=== PATIENT | male | born 1945 | race Caucasian/White ===

== ENCOUNTER 2016-06-04 22:54 | Inpatient (IN) | payer MEDICARE, BC ==
[~2016-06-04] VITALS: Ht 177.8 cm; Wt 75.5 kg
--- NOTE | ~2016-06-04 | HEMODYNAMI ---
PATIENT:DAVID KO MEDICAL RECORD: [id number] : 45 [id number] ADMISSION DATE: 06/05/16 Generatedon:06/08/201615:50 Patient name: DAVID KO Patient #: [id number] SSN: : 1945 Date of study: 06/08/2016 Page: Of Hemodynamic Procedure Report Patient Data Patient Demographics Procedure consent was obtained First Name: DAVID Gender: Male Last Name: STEFANI : 1945 [facility] Initial: L Age: 70 year(s) Patient #: [id number] Race: Unknown Additional ID: [id number] Contact details Address: [address] [place] [address] [place] State: [place] City: [facility] Zip code: [address] Past Medical History Allergies: No known allergies Admission Admission Data Admission Date: 06/05/2016 Admission Time: 2:24 Admit Source: Other Room #: D.2121 Lab Results Lab Result Date: 06/08/2016 Lab Result Time: 5:14 Biochemistry Name Units Result Min Max BUN mg/dl 48 --(----)-* 7 18 Creatinine mg/dl 4.6 --(----)-* 0.6 1.3 CBC Name Units Result Min Max Hematocrit % 29 *-(----)-- 42 54 Hemoglobin g/dl 9.1 *-(----)-- 13.5 17.5 Procedure Procedure Types Cath Procedure PCI Procedure Coronary Stent Initial Miscellaneous Procedures Moderate Sedation up to 15 minutes Procedure Description Procedure Date Procedure Date: 06/08/2016 Procedure Start Time: 12:43 Procedure End Time: 12:59 Procedure Staff Name Function Adelso Patel MD Performing Physician Nata Brooks RN Nurse Jasbir Chávez RT Monitor Lisseth Ashraf RT Scrub Jacque Tidwell RT Monitor Procedure Data Cath Procedure Fluoroscopy Diagnostic fluoroscopy Total fluoroscopy Time: 5.5 time: 5.5 min min Diagnostic fluoroscopy Total fluoroscopy dose: dose: 326.8 mGy 326.8 mGy Contrast Material Contrast Material Type Amount (ml) Isovue 300 40 Entry Location Entry Primary Successful Side Size Upsize Upsize Entry Closure Succes sful Closure Location (Fr) 1 (Fr) 2 (Fr) Remarks Device Remarks Femoral Left 6 Fr Vascade artery Short Closure System Estimated blood loss: 10 ml Procedure Complications No complications Procedure Medications Medication Administration Route Dosage Oxygen NC 2 l/min Heparin Flush Bag added to field 2 bags (1000units/500ml NS) Lidocaine 2% added to field 20 Versed I.V. 1 mg Fentanyl I.V. 50 mcg Versed I.V. 1 mg Fentanyl I.V. 50 mcg Heparin Bolus I.V. 4000 units Hemodynamics Rest HGB: 9.1 (g/dl) Heart Rate: 64 (bpm) Snapshots Pre Cath Intra NCS Post Cath Vital Signs Time Heart Resp SPO2 NIBP (mmHg) Rhythm Pain Sedation Rate (ipm) (%) Status Level (bpm) 12:30:45 68 15 98 179/108(155) NSR 0 (11) 10(A) , No pain 12:35:13 64 13 100 181/98(143) NSR 0 (11) 10(A) , No pain 12:39:33 62 18 98 163/93(134) NSR 0 (11) 10(A) , No pain 12:43:54 65 16 96 157/90(137) NSR 0 (11) 9(A) , No pain 12:48:14 64 16 96 133/94(123) NSR 0 (11) 9(A) , No pain 12:52:26 63 16 96 144/92(137) NSR 0 (11) 9(A) , No pain 12:56:42 63 16 96 151/92(104) NSR 0 (11) 9(A) , No pain 12:57:59 64 16 97 149/86(107) NSR 0 (11) 9(A) , No pain Medications Time Medication Route Dose Verified Delivered Reason Notes Eff ectiveness by by 12:36:14 Oxygen NC 2 Adelso Nata Per l/min Amanda Brooks RN physician 12:36:22 Heparin Flush added 2 Adelso Darden used for Bag to bags Amanda Patel MD procedure (1000units/500ml field NS) 12:36:29 Lidocaine 2% added 20ml Adelso Adelso used for to vial Amanda Patel MD procedure field 12:40:49 Versed I.V. 1 mg Adelso Nata for Amanda Brooks RN sedation 12:40:55 Fentanyl I.V. 50 Adelso Nata for mcg Amanda Brooks RN sedation 12:42:19 Versed I.V. 1 mg Adelso Nata for Amanda Brooks RN sedation 12:42:22 Fentanyl I.V. 50 Adelso Nata for mcg Amanda Brooks RN sedation 12:42:23 Heparin Bolus I.V. 4000 Adelso Nata dose units Amanda Brooks RN verified wtih dr patel Procedure Log Time Note 12:10:20 Informed consent obtained and on chart 12:10:46 Nata Brooks RN sent for patient. Start room use. 12:11:25 Time tracking: Regular hours 12:11:29 Plan of Care:Hemodynamics will remain stable., Cardiac rhythm will remain stable., Comfort level will be maintained., Respiratory function will remain adequate., Patient/ family verbilizes understanding of procedure., Procedure tolerated without complication., Recovers from procedure without complications.. 12:11:33 Admit Source: Other 12:14:32 Lab Result : Hemoglobin 9.1 g/dl 12:14:32 Lab Result : Hematocrit 29 % 12:14:32 Lab Result : BUN 48 mg/dl 12:14:32 Lab Result : Creatinine 4.6 mg/dl 12:17:36 ACC Patient presents with Unstable Angina CCS Anginal Class 3--Marked limitation of physical activity, angina occurs with ordinary activity.. 12:17:40 Diagnostic Cath status Elective 12:17:50 H&P Date Dictated: 06/06/2016 Within 30 days and on chart.. 12:17:54 Lab results completed and on chart. 12:22:44 Patient received from Med II to CCL 2 Alert and oriented. Tansferred to table in Supine position. 12:22:49 Correct patient and procedure confirmed by team. 12:22:49 Warm blankets applied, and jana hugger turned on for patient comfort. 12:22:50 ECG and BP/O2 sat monitors applied to patient. 12:23:42 Pre-procedure instructions explained to patient. 12:23:43 Pre-op teaching completed and patient verbalized understanding. 12:23:54 Family unavailable. 12:23:58 Patient NPO since Midnight. 12:24:03 Patient allergic to No known allergies 12:24:06 Is the patient allergic to Iodine/contrast media? No. 12:29:30 Vital chart was started 12:36:14 Oxygen 2 l/min NC was given by Nata Brooks RN; Per physician; 12:36:22 Heparin Flush Bag (1000units/500ml NS) 2 bags added to field was given by Adelso Patel MD; used for procedure; 12:36:29 Lidocaine 2% 20ml vial added to field was given by Adelso Patel MD; used for procedure; 12:37:39 Is patient on blood thinner?Yes 12:37:41 ACC The patient was administered the following blood thiners within the last 24 hours: ACCPlavix 12:37:43 Patient diabetic? No. 12:37:45 Previous problem with sedation/anesthesia? No ? 12:37:46 Snore? No 12:37:47 Sleep apnea? No 12:37:48 Deviated septum? No 12:37:49 Opens mouth fully? Yes 12:37:50 Sticks out tongue? Yes 12:37:58 Airway obstruction? No ? 12:38:00 Dentures? No ? 12:39:51 Right groin area was prepped with chlora-prep and draped in sterile fashion 12:39:56 Sharps counted by scrub and verified by R.N. 12:39:56 Alarms reviewed by R. N. 12:39:57 --------ALL STOP TIME OUT------ 12:39:57 Physician arrived 12:39:58 Final Timeout: patient, procedure, and site verified with staff and physician. All members of the team are in agreement. 12:39:59 Right groin site verified by team. 12:40:02 Physical assessment completed. ASA score P 2 - A patient with mild systemic disease as per Adelso Patel MD. 12:40:06 Sedation plan: IV Moderate Sedation Versed, Fentanyl 12:40:12 Use device set Femoral PCI 12:40:14 Tegaderm 4 x 4 opened to sterile field. 12:40:15 Acist Manifold opened to sterile field. 12:40:16 Acist Syringe opened to sterile field. 12:40:17 Bag Decanter opened to sterile field. 12:40:17 Acist Hand Control opened to sterile field. 12:40:18 Terumo 6Fr Lysite Sheath opened to sterile field. 12:40:18 Cardinal Cath Pack opened to sterile field. 12:40:19 Merit BasixCompak Inflation Kit opened to sterile field. 12:40:19 St Luis Enrique 260cm J .035 wire opened to sterile field. 12:40:49 Versed 1 mg I.V. was given by Nata Brooks RN; for sedation; 12:40:55 Fentanyl 50 mcg I.V. was given by Nata Brooks RN; for sedation; 12:42:19 Versed 1 mg I.V. was given by Nata Brooks RN; for sedation; 12:42:22 Fentanyl 50 mcg I.V. was given by Nata Brooks RN; for sedation; 12:42:23 Heparin Bolus 4000 units I.V. was given by Nata Brooks RN; ; dose verified wt dr patel 12:42:55 Baseline sample Acquired. 12:42:59 Rhythm: sinus rhythm 12:43:02 Full Disclosure recording started 12:43:02 Procedure started. 12:43:06 Local anesthetic to left femerol artery with Lidocaine 2% by Adelso Patel MD.INITIAL ACCESS ONLY 12:43:15 A 6 Fr Short sheath was inserted into the Left Femoral artery 12:43:24 Cordis 6FR XBLAD 4.0 guide catheter opened to sterile field. 12:43:41 6 Fr xblad 4 guide catheter was inserted over the wire 12:43:49 ACC PCI Site: pLAD has 90% stenosis. 12:43:53 ACC PCI Site: mLAD has 90% stenosis. 12:43:56 ACC PCI Site: dLAD has 90% stenosis. 12:44:40 ACC Pre-intervention RAMU Flow is 1. 12:44:45 Zuniga Whisper J 300cm 0.014 guide wire opened to sterile field. 12:44:46 whisper wire advanced. 12:46:40 Wire advanced across lesion. 12:47:14 The Medtronic Resolute 3.0 X 38 stent was advanced then removed because of failure to cross lesion 12:48:26 Inflation number: 1 A [place] Sci Alger 3.0 X 20 balloon was prepped and advanced across the Mid LAD, then inflated to 11 NGOZI for 0:10 (min:sec). 12:48:38 Inflation number: 2 The [place] Sci Alger 3.0 X 20 balloon was reinflated across the Mid LAD, to 11 NGOZI for 0:10 (min:sec). 12:49:01 Inflation number: 3 The [place] Sci Alger 3.0 X 20 balloon was reinflated across the Mid LAD, to 11 NGOZI for 0:10 (min:sec). 12:49:15 Balloon removed over the wire. 12:51:10 Inflation Number: 4 A Medtronic Resolute 3.0 X 38 stent was prepped and advanced across the Mid LAD. The stent was deployed at 13 NGOZI for 0:10 (min:sec). 12:51:30 Stent catheter was removed intact over wire. 12:52:58 Inflation Number: 1 A Medtronic Resolute 3.0 X 15 stent was prepped and advanced across the Prox LAD. The stent was deployed at 15 NGOZI for 0:10 (min:sec). 12:53:00 Stent catheter was removed intact over wire. 12:53:01 Guide catheter removed. 12:53:01 Wire removed. 12:53:06 Vascade 6/7 Fr Closure Device opened to sterile field. 12:56:23 Sheath removed intact; hemostasis achieved with Vascade Closure System to the Left Femoral artery. 12:56:24 Procedure ended.(Physican Out) 12:57:02 Fluoroscopy time 05.50 minutes. 12:57:12 Fluoroscopy dose: 326.8 mGy 12:57:12 Flurop Dose total: 326.8 12:57:15 Contrast amount:Isovue 300 40ml. 12:57:16 Sharps counted by scrub and verified by R.N. 12:57:20 Insertion/operative site no bleeding no hematoma. 12:57:23 Post-op/insertion site Left Femoral artery dressed using a 4 x 4 and Tegaderm. 12:57:27 Post left femerol artery:stable, soft, clean and dry 12:57:41 Post Procedure Pulses reassessed and unchanged 12:57:44 Post-procedure physical assessment completed. ASA score P 2 - A patient with mild systemic disease as per Adelso Patel MD. 12:57:47 Post procedure rhythm: unchanged. 12:57:50 Estimated blood loss: 10 ml 12:57:51 Post procedure instruction explained to patient.Patient verbalizes understanding. 12:57:52 Patient needs reinforcement of post procedure teaching. 12:58:39 Procedure type changed to Cath procedure, PCI procedure, Coronary Stent Initial, Miscellaneous Procedures, Moderate Sedation up to 15 minutes 12:59:12 Procedure and supply charges have been captured, reviewed, submitted and are correct. 12:59:15 Procedure Complication : No complications 12:59:17 Vital chart was stopped 12:59:17 See physician's report for complete and final results. 12:59:19 Report given to PCU. 12:59:21 Patient transfered to PCU with Stretcher. 12:59:23 Procedure ended. 12:59:23 Full Disclosure recording stopped 12:59:32 ACC-PCI Only Patient was given prescriptions, or instructed by Adelso Patel MD to start/continue the following medications upon discharge: Plavix 13:00:38 End room use (Document Last) Intervention Summary Intervention Notes Time ActionType Lesion and Equipment Action# Pressure Duration Attributes Used 12:47:14 Discard Medtronic Stent Resolute 3.0 X 38 stent 12:48:26 Inflate Mid LAD [place] 1 11 00:10 balloon Sci Alger 3.0 X 20 balloon 12:48:38 Reinflate Mid LAD [place] 2 11 00:10 balloon Sci Alger 3.0 X 20 balloon 12:49:01 Reinflate Mid LAD [place] 3 11 00:10 balloon Sci Alger 3.0 X 20 balloon 12:51:10 Place stent Mid LAD Medtronic 4 13 00:10 Resolute 3.0 X 38 stent 12:52:58 Place stent Prox LAD Medtronic 1 15 00:10 Resolute 3.0 X 15 stent Device Usage Item Name Manufacture Quantity Catalog Number Hospital Part Current [facility] Lot# / Charge Number Stock Stock Serial# Code Tegaderm 4 1 [id number] [id number] 5 x 4 Acist Acist 1 [id number] 491905 405992 211768 5 Manifold Medical Systems Inc Acist Acist 1 40764 271942 662441 581614 20 Syringe Medical Systems Inc Acist Hand Acist 1 07458 757467 812266 877347 5 Control Medical Systems Inc Bag Microtek 1 2002S 381868 31774 884904 5 Decanter Medical Inc. Medline Cardinal 1 [id number] 667952 73210 444139 5 Cath Pack Health Terumo 6Fr Terumo 1 [id number] 795491 544189 311327 [address] [address] Luis Enrique 1 193182 428828 780839 630646 30 260cm J .035 wire Merit Merit 1 [id number] 220416 058203 625207 15 [facility] Medical Inflation Kit Cordis 6FR Cardinal 1 [id number] 254163 356636 925842 3 XBLAD 4.0 Health guide catheter Medtronic Medtronic 1 [id number] 615106 431569 0 [id number] Resolute 3.0 X 38 stent Canton Sci Canton 1 [id number] 395193 841275 034690 1 [id number] Quake [employer] Scientific 3.0 X 20 balloon Medtronic Medtronic 1 [id number] 424441 141222 2 [id number] Resolute 3.0 X 15 stent Vascade 67 Cardiva 1 [id number] 289179 061160 897402 5 Fr Closure Medical, Device Inc. Zuniga Zuniga 1 [id number] 336966 266743 881298 5 Whisper J Vascular 300cm 0.014 guide wire Signature Audit [place] Stage Time Signature Unsigned Intra-Procedure 06/08/2016 Jasbir Santillan Counts 1:01:08 PM RT(R) RT(R) 06/08/2016 3:49:32 PM Intra-Procedure 06/08/2016 Jacque 3:50:22 PM Counts RT(R) Signatures Monitor : Jasbir Chávez RT Signature : Date : Time : Monitor : Jacque Signature : Counts RT Date : Time : [place] [address] [place] [address]
--- NOTE | ~2016-06-04 | HEMODYNAMI ---
PATIENT:DAVID KO MEDICAL RECORD: [id number] : 45 [id number] ADMISSION DATE: 06/05/16 Generatedon:06/06/201610:51 Patient name: DAVID KO Patient #: [id number] SSN: : 1945 Date of study: 06/06/2016 Page: Of Hemodynamic Procedure Report Patient Data Patient Demographics Procedure consent was obtained First Name: DAVID Gender: Male Last Name: STEFANI : 1945 [facility] Initial: L Age: 70 year(s) Patient #: [id number] Race: Unknown Additional ID: [id number] Contact details Address: [address] [place] [address] circle State: [place] City: [facility] Zip code: [address] Admission Admission Data Admission Date: 06/05/2016 Admission Time: 2:24 Room #: D.2121 Lab Results Lab Result Date: 06/06/2016 Lab Result Time: 0:00 Biochemistry Name Units Result Min Max BUN mg/dl 44 --(----)-* 7 18 Creatinine mg/dl 4.4 --(----)-* 0.6 1.3 CBC Name Units Result Min Max Hemoglobin g/dl 9.7 *-(----)-- 13.5 17.5 Procedure Procedure Types Cath Procedure Diagnostic [facility] Procedure Coronary Stent Initial Miscellaneous Procedures Moderate Sedation up to 30 minutes Peripheral Cath Diagnostic Procedure Cath Peripheral Renal Arteriogram Procedure Description Procedure Date Procedure Date: 06/06/2016 Procedure Start Time: 10:32 Procedure End Time: 10:46 Procedure Staff Name Function Adelso Patel MD Performing Physician Jasbir Chávez RT Scrub Sonia Grayson RN Nurse Rickey Nieto RT Flat Polisher Casandra Perez RT Monitor Procedure Data Cath Procedure Fluoroscopy Diagnostic fluoroscopy Total fluoroscopy Time: 3.7 time: 3.7 min min Diagnostic fluoroscopy Total fluoroscopy dose: 394 dose: 394 mGy mGy Contrast Material Contrast Material Type Amount (ml) Isovue 370 61 Entry Location Entry Primary Successful Side Size Upsize Upsize Entry Closure Succes sful Closure Location (Fr) 1 (Fr) 2 (Fr) Remarks Device Remarks Femoral Right 5 Fr 6 Fr Vascade artery Short Closure System Estimated blood loss: 5 ml Diagnostic catheters Device Type Used For End Catheter Placement Cordis 5Fr Pigtail LV Angiography Catheter (MP) Cordis 5Fr JL 4.0 Left Coronary Catheter (MP) Angiography Cordis 5Fr 3DRC Catheter Right Coronary (MP) Angiography Procedure Complications No complications Procedure Medications Medication Administration Route Dosage Oxygen NC 2 l/min Lidocaine 2% added to field 20 Heparin Flush Bag added to field 2 bags (1000units/500ml NS) 0.9% NaCl I.V. 300 ml/hr Versed I.V. 1 mg Fentanyl I.V. 50 mcg Versed I.V. 1 mg Fentanyl I.V. 50 mcg Heparin Bolus I.V. 4000 units Integrilin (Bolus I.V. 6.8 ml 2mg/ml) Versed I.V. 0.5 mg Hemodynamics Rest HGB: 9.7 (g/dl) Heart Rate: 102 (bpm) Pressure Samples Time Site Value (mmHg) Purpose Heart Use Rate(bpm) 10:34 AO 188/99(135) Pullback 75 10:34 LV 181/10,23 Pullback 75 Gradients Valve Time Site 1 Site 2 Mean SEP/DFP Peak To Heart Use (mmHg) (sec/min) Peak Rate (mmHg) (bpm) Aortic 10:34 LV AO 0 9 0 75 181/10,23 188/99(135) Calculations Valve P-P Mean Valve Index Valve Source Name Gradient Area Flow (cm2) Aortic 0 0 0 0 Snapshots Pre Cath Intra NCS Post Cath Vital Signs Time Heart Resp SPO2 etCO2 [id number] NIBP (mmHg) Rhythm Pain Sedatio n Rate (ipm) (%) (mmHg) (mmHg) Status Level (bpm) 10:11:38 78 19 98 0 0 195/115(141) NSR 0 (11) 10(A) , No pain 10:16:06 74 16 97 0 0 185/105(138) NSR 0 (11) 10(A) , No pain 10:20:32 72 17 98 0 0 189/103(139) NSR 0 (11) 10(A) , No pain 10:25:00 75 15 98 0 0 189/113(164) NSR 0 (11) 10(A) , No pain 10:29:29 74 16 97 0 0 187/93(160) NSR 0 (11) 9(A) , No pain 10:33:55 73 17 96 0 0 183/117(149) NSR 0 (11) 9(A) , No pain 10:38:19 77 19 98 0 0 195/117(140) NSR 0 (11) 9(A) , No pain 10:44:05 78 17 97 0 0 190/115(140) NSR 0 (11) 10(A) , No pain Medications Time Medication Route Dose Verified Delivered Reason Notes Effectiveness by by 10:13:54 Oxygen NC 2 Adelso Buffie used for l/min Amanda Grayson RN procedure 10:13:59 Lidocaine 2% added 20ml Adelso Adelso for local to vial Amanda Patel MD anesthetic field 10:14:05 Heparin Flush added 2 Adelso Adelso used for Bag to bags Amanda Patel MD procedure (1000units/500ml field NS) 10:14:14 0.9% NaCl I.V. 300 Adelso Buffie Per physician ml/hr Amanda Grayson RN 10:28:21 Versed I.V. 1 mg Adelso Montanezie for sedation Amanda Grayson RN 10:28:27 Fentanyl I.V. 50 Adelso Buffie for sedation mcg Amanda Grayson RN 10:34:11 Versed I.V. 1 mg Adelso Buffie for sedation Amanda Grayson RN 10:34:15 Fentanyl I.V. 50 Adelso Buffie for sedation mcg Amanda Grayson RN 10:38:05 Versed I.V. 0.5 Adelso Buffie for sedation mg Amanda Grayson RN 10:39:10 Heparin Bolus I.V. 4000 Adelso Montanezie for verifi ed units Amanda Grayson RN anticoagulation with dr patel 10:42:10 Integrilin I.V. 6.8 Adelso Buffie for (Bolus 2mg/ml) ml Amanda Grayson RN antiplatelet therapy Procedure Log Time Note 9:51:26 Informed consent obtained and on chart 9:51:50 Rickey SLATER(R) sent for patient. Start room use. 9:51:52 Time tracking: Regular hours 9:51:55 Plan of Care:Hemodynamics will remain stable., Cardiac rhythm will remain stable., Comfort level will be maintained., Respiratory function will remain adequate., Patient/ family verbilizes understanding of procedure., Procedure tolerated without complication., Recovers from procedure without complications.. 10:00:23 Patient received from Outpatients to [facility] 1 Alert and oriented. Tansferred to table in Supine position. 10:00:24 Warm blankets applied, and jana hugger turned on for patient comfort. 10:00:24 Correct patient and procedure confirmed by team. 10:00:25 ECG and BP/O2 sat monitors applied to patient. 10::15 Baseline sample Acquired. 10::15 Vital chart was started 10::23 Rhythm: sinus rhythm 10::25 Full Disclosure recording started 10:10:17 H&P Date Dictated: 06/06/2016 New H&P dictated by physician.. 10:10:19 Pre-procedure instructions explained to patient. 10:10:19 Pre-op teaching completed and patient verbalized understanding. 10:10:20 Family in waiting room. 10:10:22 Patient NPO since Midnight. 10:10:27 Is the patient allergic to Iodine/contrast media? No. 10:10:28 Was the patient premedicated? No 10:10:31 Is patient on blood thinner?No 10:10:34 Patient diabetic? No. 10:10:37 Previous problem with sedation/anesthesia? No ? 10:10:39 Snore? No 10:10:40 Sleep apnea? No 10:10:41 Deviated septum? No 10:10:48 Opens mouth fully? Yes 10:10:48 Sticks out tongue? Yes 10:10:51 Airway obstruction? No ? 10:10:54 Dentures? No ? 10:13:54 Oxygen 2 l/min NC was given by Sonia Grayson RN; used for procedure; 10:13:59 Lidocaine 2% 20ml vial added to field was given by Adelso Patel MD; for local anesthetic; 10:14:05 Heparin Flush Bag (1000units/500ml NS) 2 bags added to field was given by Adelso Patel MD; used for procedure; 10:14:14 0.9% NaCl 300 ml/hr I.V. was given by Buffie Grayson RN; Per physician; 10:14:49 Pre procedure: right dorsailis pedis pulse 1+ Palpable, but thready & weak; easily obliterated 10:14:52 Patient pain scale 0/10 ?. 10:15:02 IV patent on arrival in left forearm with 0.9% NaCl at [facility]. 10:15:29 Lab Result : BUN 44 mg/dl 10:15: Lab Result : Creatinine 4.4 mg/dl 10:15: Lab Result : Hemoglobin 9.7 g/dl 10:15:32 Lab results completed and on chart. 10:15:37 Right groin area was prepped with chlora-prep and draped in sterile fashion 10::38 Alarms reviewed by R. N. 10:15:38 Sharps counted by scrub and verified by R.N. 10:20:43 Use device set Femoral Dx 10:20:44 Acist Syringe opened to sterile field. 10:20:45 Bag Decanter opened to sterile field. 10:20:46 Cardinal Cath Pack opened to sterile field. 10:20:47 Terumo 5Fr Latham Sheath opened to sterile field. 10:20:48 St Luis Enrique 260cm J .035 wire opened to sterile field. 10:20:51 Acist Hand Control opened to sterile field. 10:20:52 Acist Manifold opened to sterile field. 10:20:54 Tegaderm 4 x 4 opened to sterile field. 10:25:38 Physician arrived 10::38 --------ALL STOP TIME OUT------ 10:25:39 Final Timeout: patient, procedure, and site verified with staff and physician. All members of the team are in agreement. 10:25:40 Right groin site verified by team. 10:25:44 Physical assessment completed. ASA score P 3 - A patient with severe systemic disease as per Adelso Patel MD. 10:25:48 Sedation plan: IV Moderate Sedation Versed, Fentanyl 10:28:21 Versed 1 mg I.V. was given by Sonia Grayson RN; for sedation; 10:28:27 Fentanyl 50 mcg I.V. was given by Sonia Grayson RN; for sedation; 10:32:38 Cordis Infinity 5Fr Multipack catheter opened to sterile field. 10:32:44 Procedure started. 10:32:51 Local anesthetic to right femoral artery with Lidocaine 2% by Adelso Patel MD.INITIAL ACCESS ONLY 10:33:49 A 5 Fr sheath was inserted into the Right Femoral artery 10:33:54 A Cordis 5Fr Pigtail Catheter (MP) was advanced over the wire and used for LV Angiography. 10:34:11 Versed 1 mg I.V. was given by Sonia Grayson RN; for sedation; 10:34:15 Fentanyl 50 mcg I.V. was given by Sonia Grayson RN; for sedation; 10:34:53 Catheter removed. 10:35:03 A Cordis 5Fr JL 4.0 Catheter (MP) was advanced over the wire and used for Left Coronary Angiography. 10:35:30 LCA angiography performed. 10:35:33 Injector settings: Ml/sec: 3, Volume: 6, 10:36:12 Catheter removed. 10:36:19 A Cordis 5Fr 3DRC Catheter (MP) was advanced over the wire and used for Right Coronary Angiography. 10:37:03 RCA angiography performed. 10:37:06 Injector settings: Ml/sec: 3, Volume: 6, 10:37:25 Bilateral renal angiography performed. 10:38:05 Versed 0.5 mg I.V. was given by Sonia Grayson RN; for sedation; 10:38:34 Catheter removed. 10:38:54 Proceeding to intervention. 10:39:10 Heparin Bolus 4000 units I.V. was given by Sonia Grayson RN; for anticoagulation; verified with dr patel 10:39:15 Merit BasixCompak Inflation Kit opened to sterile field. 10:39:16 Zuniga Whisper J 300cm 0.014 guide wire opened to sterile field. 10:39:16 Terumo 6Fr Latham Sheath opened to sterile field. 10:40:21 Sheath upsized to a 6 Fr Short. 10:40:46 Cordis 6FR XBLAD 4.0 guide catheter opened to sterile field. 10:40:56 6 Fr xblad 4 guide catheter was inserted over the wire 10:41:03 whisper wire advanced. 10:41:27 Wire advanced across lesion. 10:42:10 Integrilin (Bolus 2mg/ml) 6.8 ml I.V. was given by Sonia Grayson RN; for antiplatelet therapy; 10:42:43 Inflation Number: 1 A Medtronic Integrity 3.5 X 15 stent was prepped and advanced across the Ramus. The stent was deployed at 13 NGOZI for 0:10 (min:sec). 10:45:02 Stent catheter was removed intact over wire. 10:45:03 Wire removed. 10:45:03 Guide catheter removed. 10:45:09 Vascade 6/7 Fr Closure Device opened to sterile field. 10:45:19 Sheath removed intact; hemostasis achieved with Vascade Closure System to the Right Femoral artery. 10:45:20 Procedure ended.(Physican Out) 10:45:37 Fluoroscopy time 03.70 minutes. 10:45:42 Fluoroscopy dose: 394 mGy 10:45:42 Flurop Dose total: 394 10:45:47 Contrast amount:Isovue 370 61ml. 10:45:48 Sharps counted by scrub and verified by R.N. 10:45:49 Insertion/operative site no bleeding no hematoma. 10:45:52 Post-op/insertion site Right Femoral artery dressed using a 4 x 4 and Tegaderm. 10:45:59 Post right femoral artery:stable 10:46:01 Post Procedure Pulses reassessed and unchanged 10:46:04 Post procedure rhythm: unchanged. 10:46:07 Estimated blood loss: 5 ml 10:46:09 Post procedure instruction explained to patient.Patient verbalizes understanding. 10:46:10 Patient needs reinforcement of post procedure teaching. 10:46:38 Procedure type changed to Cath procedure, Diagnostic procedure, LHC, LHC w/Coronaries, PCI procedure, Coronary Stent Initial, Miscellaneous Procedures, Moderate Sedation up to 30 minutes, Peripheral Cath Diagnostic Procedure, Cath Peripheral, Renal Arteriogram 10:46:39 Procedure and supply charges have been captured, reviewed, submitted and are correct. 10:46:43 Procedure Complication : No complications 10:46:46 Vital chart was stopped 10:46:46 See physician's report for complete and final results. 10:46:48 Report given to [facility]. 10:46:50 Patient transfered to [facility] with Stretcher. 10:46:52 Procedure ended. 10:46:52 Full Disclosure recording stopped 10:47:00 ACC-PCI Only Patient was given prescriptions, or instructed by Adelso Patel MD to start/continue the following medications upon discharge: Plavix 10:47:01 End room use (Document Last) Intervention Summary Intervention Notes Time ActionType Lesion and Equipment Action# Pressure Duration Attributes Used 10:42:43 Place stent Ramus Medtronic 1 13 00:10 Integrity 3.5 X 15 stent Device Usage Item Name Manufacture Quantity Catalog Hospital Part Current Minima l Lot# / Number Charge Number Stock Stock Serial# Code Acist Acist 1 79003 549478 943493 565597 20 Syringe Medical Systems Inc Bag Microtek 1 2002S 011970 54023 027638 5 Decanter Medical Inc. Cardinal Cardinal 1 [id number] 942295 30615 333206 5 Cath Pack Health Terumo 5Fr Terumo 1 [id number] 142169 627515 713338 [address] Luis Enrique 1 [id number] 843489 752044 072586 30 260cm J .035 wire Acist Hand Acist 1 18254 190199 475413 002781 5 Control Medical Systems Inc Acist Acist 1 41405 041982 889901 591971 5 Magnum Semiconductor Medical Systems Inc Tegaderm 4 3M 1 1626W 799319 914838 311958 5 x 4 Cordis Cardinal 1 [id number] 242146 38835 141621 30 Infinity Health 5Fr Multipack catheter Cordis 5Fr Cardinal 1 272923 5 Pigtail Health Catheter (MP) Cordis 5Fr Cardinal 1 901434 5 JL 4.0 Health Catheter (MP) Cordis 5Fr Cardinal 1 783438 5 3DRC Health Catheter (MP) Merit Merit 1 BF0751 619072 967784 973650 15 BasixCompak Medical Inflation Kit Zuniga Zuniga 1 [id number] 848583 977229 130229 5 Whisper J Vascular 300cm 0.014 guide wire Terumo 6Fr Terumo 1 [id number] 879350 601676 293216 40 Latham Sheath Cordis 6FR Cardinal 1 [id number] 090789 829157 103624 3 XBLAD 4.0 Health guide catheter Medtronic Medtronic 1 [id number] 902526 560006 357098 6 [id number] Integrity 3.5 X 15 stent Vascade 6/7 Cardiva 1 [id number] 970478 530778 244359 5 Fr Closure Medical, Device Inc. Signature Audit [place] Stage Time Signature Unsigned Intra-Procedure 06/06/2016 Casandra Perez 10:51:38 AM RT(R) Signatures Monitor : Casandra Perez RT Signature : Date : Time : [place] [id number] [place] [address]
[2016-06-05 00:07] LABS: BASOPHILS 0.4 % (0.0-2.0); HEMATOCRIT 32.7 % (42.0-54.0); HEMOGLOBIN 10.3 g/dL (13.5-17.5); IMMATURE GRANULOCYTES 0.1 % (0-5); LYMPHOCYTES 9.5 % (15-50); MCH 29.3 pg (26.0-34.0); MCHC 31.5 g/dL (31.0-37.0); MCV 93.2 fL (80.0-100.0); MEAN PLATELET VOLUME 13.6 fL (7.4-10.4); MONOCYTES 3.1 % (2-11); NEUTROPHILS 83.9 % (40-80); PLATELET COUNT 110 10x3/uL (130-400); RBC 3.51 10x6/uL (4.20-6.10); RDW 14.1 % (11.5-14.5); WBC 9.9 10x3/uL (4.8-10.8)
[2016-06-05 00:23] LABS: ALBUMIN 2.1 g/dL (3.4-5.0); ANION GAP 12.3 mmol/L (8-16); BILIRUBIN - TOTAL 0.4 mg/dL (0.2-1.3); CALCIUM 7.7 mg/dL (8.5-10.1); CARBON DIOXIDE 23.9 mmol/L (21.0-32.0); CREATININE - SERUM 4.3 mg/dL (0.6-1.3); POTASSIUM - SERUM 3.2 mmol/L (3.5-5.1); PROTEIN - SERUM 4.9 g/dL (6.4-8.2)
[2016-06-05 00:46] LABS: TROPONIN-I 0.301 ng/mL (0.000-0.060)
--- NOTE | 2016-06-05 03:00 | NUR ---
PT ARRIVED ON UNIT VIA WHEELCHAIR ACCOMPANIED BY HOSPITAL STAFF. AMBULATED SELF TO BED. SHUFFLING GAIT NOTED. PT ALERT AND ORIENTED X4. ANSWERS QUESTIONS APPROPRIATELY. ADMISSION ASSESSMENT COMPLETED AND HISTORY OBTAINED. PT REPORTS LEAVING A HOSPITAL ONE MONTH AGO FROM A LONG PERIOD OF TIME DUE TO A STROKE. LUNG SOUNDS AUSCULTATED AND UPPER LOBES CLEAR WITH FAINT CRACKLES IN LOWER LOBES. PT DENIES SOB AT THIS TIME. S1S2 AUSCULTATED AND REGULAR. BOWEL SOUNDS ACTIVE X4 QUADRANTS. +4 PITTING EDEMA IN LOWER EXTREMETIES. PULSES PALPABLE PERIPHERALLY. SKIN SMOOTH, WARM, AND DRY. BIRTHMARK NOTED ON SKIN ABOVE XYPHOID PROCESS. DENIES PAIN/NEEDS AT THIS TIME. BED LOW AND LOCKED, CALL LIGHT IN REACH. VSS AT THIS TIME, WILL CONTINUE TO MONITOR.
[2016-06-05 04:06] VITALS: BP 155/74; BMI 21.5
[2016-06-05 04:19] VITALS: BP 155/74
--- NOTE | 2016-06-05 05:27 | NUR ---
PT SLEEPING, NO S&S OF ACUTE DISTRESS NOTED. RR EVEN AND UNLABORED. VSS ATT, WILL CONTINUE TO MONITOR.
--- NOTE | 2016-06-05 07:25 | NUR ---
ASSESSMENT COMPLETED. TELEMERTY SHOWS SR 6. 02 AT 2 L/M PER NC. EDEMA TO LOWER EXTERMITES,LEFT AC SL. NO NEEDS VOICED. WILL [id number]
[2016-06-05 08:06] VITALS: BP 154/77
[2016-06-05] MEDS ORDERED: COREG 3.1253.125 MG PO (08:31)
[2016-06-05] MEDS ORDERED: DULCOLAX STOOL100 MG PO (08:32)
[2016-06-05] MEDS ORDERED: ASPIRIN81 MG PO (08:32)
--- NOTE | 2016-06-05 08:36 | NUR ---
RATIONALE FOR SCD'S EXPLAINED. REFUSED SCD'S.
[2016-06-05 10:25] VITALS: Ht 177.8 cm; Wt 75.5 kg
--- NOTE | 2016-06-05 10:52 | NUR ---
SLEEPING QUIETLY. MONITOR SHOWS 67 NS. WILL CONTINUE TO MONITOR
[2016-06-05 12:01] VITALS: BP 153/84
--- NOTE | 2016-06-05 12:32 | NUR ---
NS STARTED ORDERED WELL LASIX. DENIES ANY NEEDS. CALL LIGHT IN REACH
[2016-06-05 13:37] LABS: BASOPHILS 1.2 % (0.0-2.0); EOSINOPHILS 5.3 % (0-7); HEMATOCRIT 27.9 % (42.0-54.0); HEMOGLOBIN 8.8 g/dL (13.5-17.5); IMMATURE GRANULOCYTES 0.2 % (0-5); LYMPHOCYTES 16.9 % (15-50); MCH 29.3 pg (26.0-34.0); MCHC 31.5 g/dL (31.0-37.0); MEAN PLATELET VOLUME 13.5 fL (7.4-10.4); MONOCYTES 4.7 % (2-11); NEUTROPHILS 71.7 % (40-80); PLATELET COUNT 97 10x3/uL (130-400)
[2016-06-05 13:44] LABS: WBC 5.1 10x3/uL (4.8-10.8)
[2016-06-05 13:56] LABS: ANION GAP 11.3 mmol/L (8-16); CALCIUM 7.5 mg/dL (8.5-10.1); CARBON DIOXIDE 26.9 mmol/L (21.0-32.0); CREATININE - SERUM 4.5 mg/dL (0.6-1.3); POTASSIUM - SERUM 3.2 mmol/L (3.5-5.1)
[2016-06-05 14:05] LABS: % SATURATION 10 % (15-55); IRON 14 ug/dl (35-150); TOTAL IRON BIND CAPACITY 136 ug/dl (260-445); UNSAT IRON BIND CAPACITY 122 ug/dl (150-375)
[2016-06-05 16:14] VITALS: BP 180/100
--- NOTE | 2016-06-05 16:32 | NUR ---
Patient Name: DAVID KO Admission Status: ER Accout number: [id number] Admission Date: 06-05-2016 : 1945 Admission Diagnosis: Attending: CHRISTIANO Current LOS: 1 Anticipated DC Date: Planned Disposition: Home Primary Insurance: MEDICARE A & B Discharge Planning Comments: * Is the patient Alert and Oriented? Yes 0 * How many steps to enter\exit or inside your home? ELEVATOR 0 * PCP DR. CARL RUIZ 0 * [facility] * Preadmission Environment Home Alone 0 * ADLs Independent 0 * Equipment None 0 * Other Equipment NO MEDICAL EQUIPMENT PROVIDER PREFERENCE 0 * List name and contact numbers for known caregivers / representatives who currently or will assist patient after discharge: BONNY KO, BROTHER, PHONE NUMBER UNKNOWN - LIVES ON [facility] IN [place]. 0 * Community resources currently utilized None 0 * Please name any agencies selected above. NONE 0 * Additional services required to return to the preadmission environment? No 0 * Can the patient safely return to the preadmission environment? Yes 0 * Has this patient been hospitalized within the prior 30 days at any hospital? No 0 CM MET WITH PT IN ROOM TO DISCUSS DISCHARGE PLANNING AND NEEDS. PT REPORTS LIVING AT HOME INDEPENDENTLY AND ALONE AT THE [facility]. PT HAS NO MEDICAL EQUIPMENT AND NO OUTSIDE SERVICES ASSISTING IN THE HOME. CM DISCUSSED AVAILABILITY OF HOME HEALTH, REHAB SERVICES AND MEDICAL EQUIPMENT. PT DENIES DISCHARGE NEEDS, REPORTS HE WILL CALL A FRIEND TO PICK HIM UP FOR DISCHARGE HOME. PT REPORTS HAVING ONLY A BROTHER AN EMERGENCY CONTACT WHO LIVES SOMEWHERE IN [place] ON THE [facility], PHONE NUBMER UNKNOWN (CÉSAR KO). PT DENIES DISCHARGE NEEDS, PLAN TO RETURN HOME ALONE. CM TO FOLLOW AND ASSIST NEEDED. [employer] Cable Splicer: Lucius Baeza
--- NOTE | 2016-06-05 18:12 | NUR ---
UP IN ROOM. DENIES ANY NEEDS. WILL MONITOR. TELEMERTY SHOWS SR
--- NOTE | 2016-06-05 19:30 | NUR ---
LYING SUPINE IN BED, HOB UP SR UP X2, C/L IN REACH. RESP EVEN AND UNLAB, VOICES NO C/O PAIN OR DISCOMFORT AT THIS TIME. TELEMETRY IN PLACE SHOWING HR SR. NS INFUSING W/O DIFF VIA PUMP TO LAC IV WITH NO R/S NOTED AT SITE. CONTINUE TO MONITOR.
[2016-06-05 20:09] VITALS: BP 191/108
--- NOTE | 2016-06-05 22:44 | NUR ---
AWAKE, ALERT AMBULATING IN ROOM, DENIES NEEDS. TELEMETRY SHOWING HR SR. C/L IN REACH.
[2016-06-06 01:22] VITALS: BP 193/112
[2016-06-06 05:35] LABS: BASOPHILS 0.9 % (0.0-2.0); EOSINOPHILS 7.8 % (0-7); HEMATOCRIT 30.1 % (42.0-54.0); HEMOGLOBIN 9.7 g/dL (13.5-17.5); IMMATURE GRANULOCYTES 0.3 % (0-5); LYMPHOCYTES 11.9 % (15-50); MCH 29.8 pg (26.0-34.0); MCHC 32.2 g/dL (31.0-37.0); MCV 92.3 fL (80.0-100.0); MEAN PLATELET VOLUME 13.5 fL (7.4-10.4); MONOCYTES 4.9 % (2-11); NEUTROPHILS 74.2 % (40-80); RBC 3.26 10x6/uL (4.20-6.10); RDW 14.1 % (11.5-14.5); WBC 5.9 10x3/uL (4.8-10.8)
[2016-06-06 05:50] LABS: PLATELET COUNT 119 10x3/uL (130-400)
[2016-06-06 05:52] LABS: CALCIUM 7.7 mg/dL (8.5-10.1); CARBON DIOXIDE 22.3 mmol/L (21.0-32.0); CREATININE - SERUM 4.4 mg/dL (0.6-1.3); POTASSIUM - SERUM 3.3 mmol/L (3.5-5.1)
[2016-06-06 06:27] VITALS: BP 197/111
[2016-06-06 08:00] VITALS: BP 192/98
[2016-06-06 10:19] LABS: FOLATE (FOLIC ACID) - SERUM 15.3 ng/mL (>3.0)
--- NOTE | 2016-06-06 11:36 | NUR ---
PT IS ALERT. ASSESSMENT DONE PER FLOWSHEET. NO OTHER NEEDS AT THIS TIME. WILL CONTINUE TO MONTIOR.
--- NOTE | 2016-06-06 12:35 | NUR ---
DRESSING TO RIGHT GROIN CDI. NO OTHER NEEDS AT THIS TIME. WILL CONTINUE TO MONTIOR.
--- NOTE | 2016-06-06 13:59 | NUR ---
PT WILL NOT STAY IN BED NOR WILL HE LEAVE RIGHT LEG FLAT EVEN AFTER NUMEROUS ATTEMPTS TO TEACH PT ABOUT HIS CATH AND SITE AREA. AT THE MOMENT SITE IS CDI. PT APPEARS CONFUSED AFTER CATH MOST LIKELY DUE TO INFLUX OF NARCOTICS FROM THE PROCEEDURE. WILL CONTINUE TO MONITOR.
[2016-06-06 15:48] LABS: CHOL - HDL RATIO 4.4 ratio (2.3-4.9); LDL-HDL RATIO 3.1 ratio (1.5-3.5)
[2016-06-06 16:00] VITALS: BP 180/102
[2016-06-06 20:20] VITALS: BP 212/114
[2016-06-07 01:10] VITALS: BP 178/99
--- NOTE | 2016-06-07 03:55 | NUR ---
PT IV WITH CATH TIP FOUND UNDER DRESSING, LYING ON THE OUTSIDE OF THE SKIN. DRESSING REMOVED TO LEFT AC AND SITE CLEANSED. RESITED WITH 20 GA ANGIOCATH X 1 STICK TO LEFT FOREARM. PT RAMÓN WELL. DRESSING PER POLICY. WILL MONITOR.
--- NOTE | 2016-06-07 04:03 | NUR ---
PT B/P ELEVATED 194/112. HYDRALAZINE 10 MG IV GIVEN. WILL CONT TO MONITOR.
[2016-06-07 05:14] VITALS: BP 194/114
[2016-06-07 05:19] LABS: BASOPHILS 1.2 % (0.0-2.0); HEMOGLOBIN 9.2 g/dL (13.5-17.5); IMMATURE GRANULOCYTES 0.4 % (0-5); LYMPHOCYTES 16.8 % (15-50); MCH 29.8 pg (26.0-34.0); MCHC 31.7 g/dL (31.0-37.0); MCV 93.9 fL (80.0-100.0); MEAN PLATELET VOLUME 12.8 fL (7.4-10.4); MONOCYTES 6.4 % (2-11); NEUTROPHILS 59.2 % (40-80); PLATELET COUNT 130 10x3/uL (130-400); RBC 3.09 10x6/uL (4.20-6.10); RDW 14.3 % (11.5-14.5)
[2016-06-07 05:30] LABS: ANION GAP 14.3 mmol/L (8-16); CALCIUM 7.6 mg/dL (8.5-10.1); CARBON DIOXIDE 21.6 mmol/L (21.0-32.0); CREATININE - SERUM 4.3 mg/dL (0.6-1.3)
[2016-06-07 05:41] LABS: POTASSIUM - SERUM 3.9 mmol/L (3.5-5.1)
[2016-06-07 08:37] VITALS: BP 161/85
--- NOTE | 2016-06-07 09:21 | NUR ---
PT IS ALERT. ASSESSMENT DONE PER FLOWSHEET. NO OTHER NEEDS AT THIS TIME. WILL CONTINUE TO MONITOR.
[2016-06-07 12:29] VITALS: BP 144/78
--- NOTE | 2016-06-07 13:00 | NUR ---
Nutrition Follow Up: Chart reviewed. Pt is eating 75% meal avg on an AHA diet. Wt gain since admit. Meds noted. Labs noted including elevated BUN, Cr, Na. Rec continue current diet. RD will continue to monitor pt progress.
--- NOTE | 2016-06-07 13:59 | CN ---
PATIENT NAME:DAVID ROMAN MEDICAL RECORD: [id number] : [birth year] LOCATION:[facility] D.2121 ADMIT DATE: 06/05/16 ACCOUNT: [id number] CONSULTING PHYSICIAN: WILLIAN DIMAS MD REFERRING PHYSICIAN: AYLSSA OLIVER MD DATE OF CONSULTATION: 06/06/2016 DIAGNOSES: 1. Non-Q-wave myocardial infarction. 2. Shortness of breath, dyspnea on exertion. 3. Hypertension. HISTORY OF PRESENT ILLNESS: Mr. Roman has no previous cardiac history. He presents with 2 days of shortness of breath and some chest pressure. His troponin is positive for non-Q-wave myocardial infarction. His EKG is only with nonspecific ST-T abnormalities. PHYSICAL EXAMINATION: GENERAL APPEARANCE: Well-nourished, well-developed, appears stated age. Level of distress, comfortable. PSYCHIATRIC: Mental status, alert, normal affect. Orientation, oriented to time, place and person. EYES: Lids and conjunctiva, noninjected. No discharge, no pallor. ENT: Lips, teeth, gums, normal dentition. Oropharynx, no cyanosis, no pallor. NECK: Carotid arteries, bilateral normal upstroke, no bruits, no thrills. JUGULAR VEINS: No jugular venous pressure or distention. CERVICAL LYMPH NODES: Nontender, nonenlarged. THYROID: Not enlarged. Nontender. No nodules. LUNGS: Respiratory effort, unlabored. CHEST: Normal curvature. No thoracic deformity. No chest wall tenderness. Percussion, resonant. Auscultation, clear. No wheezes, no rales, no rhonchi. CARDIOVASCULAR: Precordial exam, nondisplaced. No heaves or pericardial thrills. Rate and rhythm, regular. Heart sounds, normal S1, normal S2. No S3, no gallop, no rub. Systolic murmur, not heard. Diastolic murmur, not heard. EXTREMITIES: No cyanosis, no edema. Peripheral pulses, full and equal in all extremities, except as noted. No bruits appreciated. ABDOMEN: Soft, nondistended. Normal aorta. No bruit. Nontender. No masses. Liver, nontender, no hepatomegaly. Spleen, nontender, no splenomegaly. MUSCULOSKELETAL: No joint tenderness. No joint swelling. No erythema. NEUROLOGICAL: Normal gait, normal strength, normal tone. SKIN: Warm and dry. REVIEW OF SYSTEMS: The patient reports easy bruising but reports no swollen glands. The patient reports no fever, no night sweats, no significant weight gain, no significant weight loss. No significant exercise tolerance. The patient reports no dry eyes, no irritation, no vision change. Patient reports no difficulty hearing and no ear pain. Patient reports no frequent nose bleeds or nose and sinus problems. Patient reports on arm pain on exertion. No shortness of breath while lying down. No history of heart murmur. Patient reports no cough, no wheezing or coughing up blood. Patient reports no abdominal pain, no vomiting. Normal appetite. No diarrhea and not vomiting blood. No nausea and no constipation. Patient reports no incontinence. No difficulty urinating. No hematuria. No increased frequency. Patient reports no muscle aches. No weakness, no arthralgias, no back pain. No swelling of the extremities. Patient reports no abnormal mole, no jaundice, no rashes. Reports CONSULT REPORT [id number] DAVID ROMAN no loss of consciousness. No weakness and no numbness. No seizures, dizziness, or headaches. The patient reports no depression, no sleep disturbance, feeling safe in a relationship and no alcohol abuse. Patient reports on fatigue. Reports no runny nose or sinus pressure. No itching, no hives, and no frequent sneezing. OVERALL IMPRESSION: Non-Q-wave myocardial infarction, most likely has hemodynamically significant coronary artery disease. We will proceed with coronary angiography. Further care depends upon findings of the angiography. TRANSINT:[id number] Voice Confirmation ID: [id number] DOCUMENT ID: [id number] WILLIAN DIMAS MD at 1359 CC: [id number] DICTATION DATE: 06/06/16 0841 GEOMAGNETICIAN: 06/06/16 0906 [place] [address]
--- NOTE | 2016-06-07 13:59 | OP ---
PATIENT NAME: DAVID KO MEDICAL RECORD: [id number] :45 LOCATION:D. D.2121 ADMISSION DATE:06/05/16 SURGEON: WILLIAN DIMAS MD DATE OF OPERATION: 06/06/2016 PROCEDURES: 1. PTCA stent to left circumflex. 2. Left heart catheterization. 3. Selective coronary angiography. 4. Left ventriculogram. 5. Bilateral selective renal angiography. INDICATIONS: Non-Q-wave myocardial infarction, coronary artery disease, renovascular hypertension with renal insufficiency. PROCEDURE IN DETAIL: After informed consent was obtained and after detailed explanation of risks, benefits as well as alternative therapies, the patient elected to proceed with angiogram and angioplasty. The right femoral area was prepped and draped in normal sterile fashion. The right femoral artery was cannulated via modified Seldinger technique with placement of 6-Icelandic sheath. All catheters exchanged through this sheath. FINDINGS: Left ventriculogram was not performed secondary to dye conservation and renal insufficiency. There was no gradient across the aortic valve with aortic pressure being 180/96, left ventricular pressure 180/12. SELECTIVE CORONARY ANGIOGRAPHY: 1. Left main is with no significant angiographic disease. 2. Left circumflex has a very large ramus intermedius that has 95% stenosis at the proximal vessel. 3. Left anterior descending has 2 areas of 90% stenosis. 4. Right coronary has 70%-80% stenosis in the mid vessel. 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 No significant renal artery stenosis. The left renal artery is a solitary artery off the aorta with no significant pressure damping, no renal artery stenosis. PTCA STENT OF THE RAMUS INTERMEDIUS: The stent used was a 3.5 x 15 mm Integrity. Result was 0% residual stenosis. OVERALL IMPRESSION: Successful percutaneous transluminal coronary angioplasty stent of the left circumflex ramus intermedius going from 95% initial stenosis to 0% residual. Plan for PTCA stent of the LAD and RCA in a staged fashion. bilateral selective renal angiography. 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 No significant renal artery stenosis. The left renal artery is a solitary artery off the aorta with no significant pressure damping, no renal artery stenosis. TRANSINT:[id number] Voice Confirmation ID: [id number] DOCUMENT ID: [id number] OPERATIVE REPORT [id number] DAVID KO 06/07/2016 Edited to correct fha underwriter errors and edit procedure #1 to left paris arias. WILLIAN DIMAS MD at 1359 CC: [id number] DICTATION DATE: 06/06/16 1048 MEDICAL STENOGRAPHER: 06/06/16 1113 ADM IN [place] [id number] [place] [id number]
--- NOTE | 2016-06-07 13:59 | EC ---
PATIENT:DAVID KO DATE OF SERVICE: 06/05/16 SEX: M MEDICAL RECORD: [id number] DATE OF : [birth year] LOCATION:D. D.212 AGE OF PATIENT: 70 ADMISSION DATE: 06/05/16 REFERRING PHYSICIAN: INTERPRETING PHYSICIAN: WILLIAN PATEL MD ECHOCARDIOGRAM REPORT ECHO CHARGES 4 ECHO COMPLETE CLINICAL DIAGNOSIS: CHF ECHOCARDIOGRAPHIC MEASUREMENTS (adult normal given) AC root (d.<3.7cm) 3.7 LV Septum d (<1.2 cm> 1.2 Valve Excursion 2.2 LV Septum (systole) 1.4 Left Atria (s.<4.0cm> 4.5 LVPW d(<1.2cm) 1.4 RV (d.<2.3cm) 3.4 LVPW (sytole) 1.6 LV diastole(<5.6CM) 6.6 MV E-F(>70mm/sec) LV systole 5.1 LVOT Diameter 2.1 MV exc.(>10mm) 1.6 Est.ejection fraction (50-75%) Pericardial Effusion N DOPPLER: LVIT A 51.0 E 94.0 LA RVSP 30 LVOT 102 AOP1/2T Asc. Ao 110 RVOT 71 RA PA 133 AV Gradient Peak 4.82 AV Mean 1.62 AV Area 2.2 MV Gradient Peak 4.02 MV Mean 1.63 MV Area COMMENTS: Polymer Tester: Liza DOWD Pipe Testing Technician:1 Dr. Patel TAPE# PACS DATE OF SERVICE: 06/05/2016 Echocardiogram FINDINGS: 1. Left ventricular chamber size is mildly dilated. Left ventricular systolic function is mildly reduced, overall ejection fraction 40%. 2. Left atrium is enlarged at 4.5 cm. Right atrium and right ventricle chamber sizes are as well mildly dilated. 3. Valvular structures have normal structure and motion. ECHOCARDIOGRAM REPORT [id number] DAVID KO 4. Doppler interrogation reveals mild mitral regurgitation, mild tricuspid regurgitation, no other valvular insufficiency or stenosis. Pulmonary systolic pressure is estimated at 30 mmHg. 5. No evidence of pericardial effusion or left ventricular thrombus. TRANSINT:[id number] Voice Confirmation ID: [id number] DOCUMENT ID: [id number] WILLIAN PATEL MD at 1353 CC: [id number] DICTATION DATE: 06/06/16930 COMPUTER SYSTEMS ANALYST: 06/06/1659 ADM IN [facility] [address] [facility], [facility]
--- NOTE | 2016-06-07 14:12 | NUR ---
PT IS ALERT. NO SS OF DISTRESS AT THIS TIME. WILL CONTINUE TO MONITOR.
[2016-06-07 16:42] VITALS: BP 155/84
[2016-06-07 20:39] VITALS: BP 142/86
[2016-06-08 00:47] VITALS: BP 153/86
[2016-06-08 04:56] VITALS: BP 142/76
[2016-06-08 05:14] LABS: BASOPHILS 1.6 % (0.0-2.0); EOSINOPHILS 18.3 % (0-7); HEMOGLOBIN 9.1 g/dL (13.5-17.5); IMMATURE GRANULOCYTES 0.2 % (0-5); LYMPHOCYTES 17.4 % (15-50); MCH 29.6 pg (26.0-34.0); MCHC 31.4 g/dL (31.0-37.0); MCV 94.5 fL (80.0-100.0); MEAN PLATELET VOLUME 12.5 fL (7.4-10.4); MONOCYTES 7.2 % (2-11); NEUTROPHILS 55.3 % (40-80); RBC 3.07 10x6/uL (4.20-6.10); RDW 14.2 % (11.5-14.5); WBC 4.3 10x3/uL (4.8-10.8)
[2016-06-08 05:20] LABS: PLATELET COUNT 171 10x3/uL (130-400)
[2016-06-08 05:29] LABS: ANION GAP 15.2 mmol/L (8-16); CALCIUM 7.6 mg/dL (8.5-10.1); CARBON DIOXIDE 20.9 mmol/L (21.0-32.0); CREATININE - SERUM 4.6 mg/dL (0.6-1.3); POTASSIUM - SERUM 4.1 mmol/L (3.5-5.1)
[2016-06-08 08:26] VITALS: BP 174/99
--- NOTE | 2016-06-08 09:26 | NUR ---
TELEMETRY SR. NPO FOR [facility]. CALL LIGHT IN REACH. WILL CONT. PLAN OF CARE.
[2016-06-08 12:10] VITALS: BP 157/84
--- NOTE | 2016-06-08 12:25 | NUR ---
PRE-OPS GIVEN. TO FLOUR MIXER BY BED.
--- NOTE | 2016-06-08 13:30 | NUR ---
BACK FROM CATERING ADMINISTRATIVE ASSISTANT. VS WNL. RIGHT GROIN STABLE WITHOUT BLEEDING OR HEMATOMA NOTED. WILL MONITOR.
--- NOTE | 2016-06-08 16:12 | NUR ---
Patient Name: DAVID KO Encounter No: [id number] : 1945 Primary Insurance: MEDICARE A & B Anticipated DC Date: 06-09-2016 Planned Disposition: Home DCP follow-up note: CM MET WITH PT IN ROOM TO DISCUSS DISCHARGE NEEDS AND PLANNING. CM DISCUSSED AVAILABILITY OF HOME HEALTH, REHAB SERVICES AND MEDICAL EQUIPMENT. PT DENIES DISCHARGE NEEDS, WILL PHONE A FRIEND TO TAKE HIM HOME TO THE [facility]. IMPORTANT MESSAGE FROM MEDICARE PROVIDED AND EXPLAINED. Lucius Baeza, CASE MANAGEMENT
[2016-06-08 16:25] VITALS: BP 155/82
--- NOTE | 2016-06-08 17:00 | NUR ---
BED REST UP. GROIN STABLE.
[2016-06-08 20:06] VITALS: BP 162/90
[2016-06-09 00:01] VITALS: BP 150/72
--- NOTE | 2016-06-09 02:01 | NUR ---
PT IS CONFUSED AND FULLY DRESSED, REMOVED HIS TELEMETRY. STATES HE IS READY TO GO HOME. EXPLAINED TO PT THAT HE IS NOT BEING DISCHARGED UNTIL THE MORNING. PT IS CONFUSED TO TIME. PT REFUSES TO WEAR A GOWN AND REFUSES TO PUT TELEMETRY BACK ON. ASSISTED PT BACK TO ROOM. PT TAKES CHAIR AND SITS IT OUTSIDE HIS DOOR, SITS IN THE CHAIR AND REFUSES TO GO BACK IN HIS ROOM. PT IS IN DIRECT VIEW OF THE NURSES STATION AND WILL CONT TO MONITOR HIM FREQ FOR SAFETY.
[2016-06-09 04:50] LABS: BASOPHILS 1.3 % (0.0-2.0); EOSINOPHILS 22.4 % (0-7); HEMATOCRIT 30.8 % (42.0-54.0); HEMOGLOBIN 9.7 g/dL (13.5-17.5); IMMATURE GRANULOCYTES 0.2 % (0-5); LYMPHOCYTES 16.6 % (15-50); MCH 29.8 pg (26.0-34.0); MCHC 31.5 g/dL (31.0-37.0); MCV 94.5 fL (80.0-100.0); MONOCYTES 6.2 % (2-11); NEUTROPHILS 53.3 % (40-80); RBC 3.26 10x6/uL (4.20-6.10); WBC 5.2 10x3/uL (4.8-10.8)
[2016-06-09 04:51] LABS: PLATELET COUNT 216 10x3/uL (130-400)
[2016-06-09 05:01] VITALS: BP 179/105
[2016-06-09 05:11] LABS: ANION GAP 12.7 mmol/L (8-16); CALCIUM 7.9 mg/dL (8.5-10.1); CARBON DIOXIDE 23.4 mmol/L (21.0-32.0); CREATININE - SERUM 4.8 mg/dL (0.6-1.3); POTASSIUM - SERUM 4.1 mmol/L (3.5-5.1)
[2016-06-09 07:20] VITALS: BP 165/94
--- NOTE | 2016-06-09 07:34 | NUR ---
0710-AROUSES EASILY WITH AM ROUNDING, DENIES NEEDS AT PRESENT TIME. ON ROOM AIR. LEFT FOREARM SEEN WITH SALINE LOCK. BILATERAL DRESSINGS OF 2 X2 AND OPSITE SEEN TO RIGHT AND LEFT GROIN. OP SITES PALPATE SOFT. BILATERAL PPP AND STRONG. WILL CONTINUE TO MONITOR.
--- NOTE | 2016-06-09 10:58 | NUR ---
NORMAL SALINE IV FLUID STARTED TO LEFT FOREARM ORDERED AND EXPLAINED TO PATIENT.
[2016-06-09 11:13] VITALS: BP 131/85
--- NOTE | 2016-06-09 13:23 | NUR ---
WATCHING TV, DENIES NEEDS AT PRESENT TIME. FEELS LIKE A SAUNA IN ROOM BUT PATIENT SAYS HE IS COMFORTABLE. WILL CONTINUE TO MONITOR.
[2016-06-09 15:12] VITALS: BP 132/69
--- NOTE | 2016-06-09 15:44 | NUR ---
PATIENT TO TAKE SHOWER AND COMPLETE LINEN CHANGE PER MYSELF DONE. WILL CONTINUE TO MONITOR.
--- NOTE | 2016-06-09 18:07 | NUR ---
PATIENT STATES HE HAS NOT HAD A BOWEL MOVEMENT IN 4 DAYS. UPSET THAT WE ARE GIVING HIM HIS FEMALE LAXATIVE AND VEGETABLE LAXATIVE THAT HE HAS TAKEN "FOREVER". I ASKED HIM IF HE WOULD LIKE SOME WARM PRUNE JUICE AND 7UP. HE REPLIED NO. HE TELLS ME THAT THE DOCTORS AND MYSELF ARE NOT DOING OUR JOB HE HAS NOT HAD A BM. WILL CONTINUE TO MONITOR.
--- NOTE | 2016-06-09 20:03 | NUR ---
PT RESTING IN BED. ALERT/ORIENTED TO SELF. SAYING HE JUST WANTS TO GO HOME. NONLABORED RESPIRATIONS ON ROOM AIR. PIV TO LFA WITH NS @ 75ML/HR. SEE ASSESSMENT. CPOC.
[2016-06-09 20:51] VITALS: BP 146/86
--- NOTE | 2016-06-09 21:58 | NUR ---
HS MEDS GIVEN. PT RESTING WITH NO DISTRESS. CONTINUE TO MONITOR.
--- NOTE | 2016-06-09 23:12 | NUR ---
RESTING WITH EYES CLOSED. NO DISTRESS. CPOC.
[2016-06-10 00:30] VITALS: BP 157/90
--- NOTE | 2016-06-10 01:16 | NUR ---
PT WAS AWAKENED BY ALARMING IV AND BECAME FOCUSED ON HIS BOWELS AND LACK OF BM "FOR 5 DAYS". VERY AGITATED TOWARDS NURSE. PROVIDED PT WITH MIRALAX AND APPLE JUICE AND HE ANGRILY TOLD NURSE THAT IT WAS A WASTE OF HIS TIME. PT SAYING HE HAS NEVER TOLD AN MD ABOUT HIS LACK OF BM BECAUSE "I NEVER SEE THEM, THEY DON'T COME AROUND". PROVIDED PT WITH MIRALAX MIXED IN APPLEJUICE FOR NOW AND TOLD HIM THAT WHEN MD ROUNDS IN AM, THIS WILL BE BROUGHT TO MD'S ATTENTION. PT VERY NEGATIVE AND TOLD NURSE SHE COULD LEAVE ROOM.
[2016-06-10 04:30] VITALS: BP 169/98
--- NOTE | 2016-06-10 04:48 | NUR ---
PT CAME INTO HALLWAY DRESSED IN HIS STREET CLOTHES, IV TO LEFT ARM HAD BEEN PULLED OUT BY PATIENT. PT HAD TAKEN A SHOWER. INSTRUCTED PT THAT HE NEEDED TO LET STAFF KNOW IF HE WAS WANTING TO SHOWER, SO THAT IV COULD HAVE BEEN SECURED. WHILE NURSE ASSESSING FOR SITE FOR NEW IV, PT RAMBLING ON AND ON ABOUT POOR NURSING CARE, NURSES THAT DON'T KNOW ANYTHING, AND THEN HE BEGAN TO TALK ABOUT HIS CONSTIPATION AGAIN. TELLING NURSE "YOU'D BE PISSED TOO IF THEY LET YOU GO 5 DAYS WITHOUT POOPING" AND "I OUGHT TO TAKE A SHIT IN THE FLOOR RIGHT NOW JUST TO SHOW ALL OF YOU". REMINDED PT THAT DAY NURSE HAD OFFERED HIM PRUNE JUICE AND LEMON ANIAK COCKTAIL AND IT WAS DOCUMENTED THAT HE HAD REFUSED. PT STATES "THAT'S A LIE". REMINDED PT THAT THIS NURSE HAD PROVIDED HIM WITH MIRALAX AND APPLEJUICE AND HE ALSO DENIED RECIEVING THIS. ATTEMPTS X 2 TO RESITE IV TO WHERE PT WANTED IT, WHICH WAS NOT THE IDEAL SITE. NO SUCCESS. LAB COLLECTED BLOOD FOR AM LAB WORK AT THIS TIME. INSTRUCTED PT THAT WE WILL WAIT UNTIL LABS RESULT AND SEE IF HE EVEN NEEDS ANOTHER IV. CPOC.
[2016-06-10 05:03] LABS: BASOPHILS 1.3 % (0.0-2.0); EOSINOPHILS 19.3 % (0-7); HEMATOCRIT 28.7 % (42.0-54.0); HEMOGLOBIN 9.1 g/dL (13.5-17.5); IMMATURE GRANULOCYTES 0.2 % (0-5); LYMPHOCYTES 21.1 % (15-50); MCH 29.5 pg (26.0-34.0); MCHC 31.7 g/dL (31.0-37.0); MCV 93.2 fL (80.0-100.0); MEAN PLATELET VOLUME 11.7 fL (7.4-10.4); MONOCYTES 9.4 % (2-11); NEUTROPHILS 48.7 % (40-80); PLATELET COUNT 192 10x3/uL (130-400); RBC 3.08 10x6/uL (4.20-6.10); RDW 14.1 % (11.5-14.5); WBC 4.5 10x3/uL (4.8-10.8)
[2016-06-10 05:22] LABS: CALCIUM 7.8 mg/dL (8.5-10.1); CARBON DIOXIDE 21.3 mmol/L (21.0-32.0); CREATININE - SERUM 4.6 mg/dL (0.6-1.3); POTASSIUM - SERUM 4.3 mmol/L (3.5-5.1)
--- NOTE | 2016-06-10 07:21 | NUR ---
AM ROUNDING DONE. PATIENT STILL IS GOING ON ABOUT NOT HAVING A BM AND TELLING ME THAT WE ARE NOT "DOING YOUR JOB CAUSE I HAVE NOT HAD A BM". PATIENT HAS HAD MIRALOX BUT REFUSES HIS COLACE. TOLD HIM THAT WE WOULD TRY AND GET AN ORDER FOR A FLEET ENEMA. CONFUSED, KNOWS THAT HE IS IN THE HOSPUTAL BUT THINKS HE HAS A DOCTOR APPOINTMENT. NO IV ACCESS, REFUSES TO LET ME TRY, "WOMEN ARE NO GOOD". WILL CONTINUE TO MONITOR.
[2016-06-10 08:28] VITALS: BP 162/95
--- NOTE | 2016-06-10 09:26 | NUR ---
0925KARINA IN STRAIGHT BACK CHAIR. CHRONULAC GIVEN ORDERED. INSTRUCTED PATIENT TO NOTIFY US TO SEE BOWEL MOVEMENT BEFORE FLUSHING. STATES TO UNDERSTANDING. WILL CONTINUE TO MONITOR
--- NOTE | 2016-06-10 12:00 | NUR ---
PATIENT REPORTS TO HAVING A BOWEL MOVEMENT, HE DID NOT SAVE IT LIKE HE WAS ASKED TO. REPORTS THAT IT WAS HARD TO START WITH AND THEN WAS A "GREENISH COLOR". YELLS OUT TO ME "TOUCHDOWN". I ENCORUGED HIM TO WAIT ON DR OLIVER TO COME AND DISCHARGE HIM BEFORE HE TRIED TO LEAVE, STATES HE WILL WAIT. EATING LUNCH.
[2016-06-10 12:42] VITALS: BP 142/86
[2016-06-10] MEDS ORDERED: CATAPRES0.2 MG PO (13:54)
[2016-06-10] MEDS ORDERED: FERREX 150 PLUS1 CAP PO (13:54)
[2016-06-10] MEDS ORDERED: MIRALAX17 GM PO (13:55)
[2016-06-10] MEDS ORDERED: NORVASC10 MG PO (13:55)
[2016-06-10] MEDS ORDERED: PLAVIX75 MG PO (13:55)
[2016-06-10] MEDS ORDERED: COREG6.25 MG PO (13:55)
--- NOTE | 2016-06-10 14:20 | NUR ---
WRITTEN SCRIPTS GIVEN TO PATIENT FOR COREG, AMLODIPINE, AND PRAVACHOL. TO RETURN TO [facility] ON SUNDAY, JUNE 12, 2016 AT 0800. NOTHING TO EAT OR DRINK PAST MIDNIGHT THE NIGHT BEFORE.
--- NOTE | 2016-06-10 14:50 | NUR ---
VERBAL AND WRITTEN DISCHARGE INSTUCTIONS GIVEN TO PATIENT. TO BE BACK HERE ON 06-12-16 AT 0800. AGAIN, I STRESSED TO HIM THE IMPORTANCE OF THIS AND NOTHING TO EAT OR DRINK AFTER MIDNIGHT SATURDAY NIGHT, NOTHING SATURDAY MORNING. HE STATES HE UNDERSTANDS THIS. AWAITING TAXI FOR DISCHARGE.
--- NOTE | 2016-06-10 15:00 | NUR ---
DISCHARGED HOME VIA TAXI.
--- NOTE | 2016-06-22 08:46 | OP ---
PATIENT NAME: DAVID KO MEDICAL RECORD: [id number] :45 LOCATION:D.M2 D.2121 ADMISSION DATE:06/05/16 SURGEON: WILLIAN DIMAS MD DATE OF OPERATION: 06/08/2016 PROCEDURES: 1. PTCA stent LAD. 2. Selective coronary angiography. PROCEDURE IN DETAIL: After informed consent was obtained and after a detailed explanation of risks, benefits as well as alternative therapies, the patient elected to proceed with angiogram and angioplasty. The left femoral area was prepped and draped in normal sterile fashion. Left femoral artery was cannulated via modified Seldinger technique with placement of a 6-Spanish sheath. All catheters exchanged through this sheath. FINDINGS: The left anterior descending has 3 areas of 90% stenosis. These were addressed with a 3.0 x 38 and a 3.0 x 15 both Resolute stents. Result was 0% residual stenosis. OVERALL IMPRESSION: Successful percutaneous transluminal coronary angioplasty stent of the left anterior descending going from multiple areas of 90% initial stenosis to 0% residual. TRANSINT:[id number] Voice Confirmation ID: [id number] DOCUMENT ID: [id number] WILLIAN DIMAS MD at 0846 CC: [id number] DICTATION DATE: 06/08/16 1307 ROOFING LAYER: 06/08/16 1616 DIS IN 06/10/[address] [address]
--- NOTE | 2016-06-22 08:46 | DS ---
PATIENT:DAVID ROMAN :45 MEDICAL RECORD: [id number] DISCHARGE SUMMARY ADMISSION DATE: 06/05/16 DISCHARGE DATE: 06/10/16 DIAGNOSES: 1. Non-Q-wave myocardial infarction. 2. Coronary artery disease. 3. Percutaneous transluminal coronary angioplasty stent of the left circumflex and left anterior descending this admission. 4. Renal insufficiency. 5. Hypertension. HOSPITAL COURSE: Mr. Roman presents with chest pain, ruled in for non-Q-wave myocardial infarction, found to have severe 3-vessel coronary artery disease, underwent successful PTCA stent of the LAD and left circumflex. He was discharged home with the addition of aspirin and Plavix to his medical regimen and he will be brought back in 1 week for PTCA stent of the RCA. TRANSINT:[id number] Voice Confirmation ID: [id number] DOCUMENT ID: [id number] WILLIAN DIMAS MD at 0846 CC: [id number] DICTATION DATE: 06/08/16 1304 FIRER BOILER: 06/09/16 0033 DIS IN 06/10/[address] [facility] [address] [place] [address]
== END 2016-06-10 15:00 | disposition home or self-care (01) | DRG 246 ==
LOC: D.ER 22:54 → D.M2 06-05 02:24
PROVIDERS: Emergency Medicine Emergency Medical Services; Internal Medicine Interventional Cardiology; ADMIT Emergency Medicine
PROC: B2111ZZ Fluoroscopy of Multiple Coronary Arteries using Low Osmolar Contrast (ICD-10-PCS; 2016-06-06)
PROC: B2151ZZ Fluoroscopy of Left Heart using Low Osmolar Contrast (ICD-10-PCS; 2016-06-06)
PROC: B4181ZZ Fluoroscopy of Bilateral Renal Arteries using Low Osmolar Contrast (ICD-10-PCS; 2016-06-06)
PROC: 02703DZ Dilation of Coronary Artery, One Artery with Intraluminal Device, Percutaneous Approach (ICD-10-PCS; principal; 2016-06-06 11:00)
PROC: 4A023N7 Measurement of Cardiac Sampling and Pressure, Left Heart, Percutaneous Approach (ICD-10-PCS; 2016-06-06 11:00)
PROC: 027035Z Dilation of Coronary Artery, One Artery with Two Drug-eluting Intraluminal Devices, Percutaneous Approach (ICD-10-PCS; 2016-06-08)
DX: I21.4 Non-ST elevation (NSTEMI) myocardial infarction (principal); I50.23 Acute on chronic systolic (congestive) heart failure; N17.9 Acute kidney failure, unspecified; I13.0 Hypertensive heart and chronic kidney disease with heart failure and stage 1 through stage 4 chronic kidney disease, or unspecified chronic kidney disease; N18.4 Chronic kidney disease, stage 4 (severe); I25.10 Atherosclerotic heart disease of native coronary artery without angina pectoris; D63.1 Anemia in chronic kidney disease; Z86.73 Personal history of transient ischemic attack (TIA), and cerebral infarction without residual deficits; Z72.0 Tobacco use

== ENCOUNTER 2016-06-12 07:30 | Outpatient (CLI) | payer MEDICARE, BC ==
[~2016-06-12] VITALS: Ht 177.8 cm; Wt 78.2 kg
--- NOTE | ~2016-06-12 | HEMODYNAMI ---
PATIENT:DAVID KO MEDICAL RECORD: [id number] : 45 [id number] ADMISSION DATE: 06/12/16 Generatedon:06/12/20169:18 Patient name: DAVID KO Patient #: [id number] SSN: : 1945 Date of study: 06/12/2016 Page: Of Hemodynamic Procedure Report Patient Data Patient Demographics Procedure consent was obtained First Name: DAVID Gender: Male Last Name: STEFANI : 1945 Middle Initial: L Age: 70 year(s) Patient #: [id number] Race: Unknown Additional ID: [id number] Contact details Address: [address] [place] [address] [place] State: [place] City: [facility] Zip code: [address] Past Medical History Allergies: No known allergies Admission Admission Data Admission Date: 06/12/2016 Admission Time: 7:30 Lab Results Lab Result Date: 06/12/2016 Lab Result Time: 0:00 Biochemistry Name Units Result Min Max BUN mg/dl 37 --(----)-* 7 18 Creatinine mg/dl 4.4 --(----)-* 0.6 1.3 CBC Name Units Result Min Max Hemoglobin g/dl 10.5 *-(----)-- 13.5 17.5 Procedure Procedure Types Cath Procedure Diagnostic Procedure [place] FFR/IVUS Intra-Coronary IVUS Initial PCI Procedure Coronary Stent Initial Miscellaneous Procedures Moderate Sedation up to 15 minutes Procedure Description Procedure Date Procedure Date: 06/12/2016 Procedure Start Time: 9:00 Procedure End Time: 9:08 Procedure Staff Name Function Adelso Patel MD Performing Physician Casandra Perez RT Scrub Sonia Grayson RN Nurse Naresh Ruiz RT Monitor Procedure Data Cath Procedure Fluoroscopy Diagnostic fluoroscopy Total fluoroscopy Time: 2 time: 2 min min Diagnostic fluoroscopy Total fluoroscopy dose: 165 dose: 165 mGy mGy Contrast Material Contrast Material Type Amount (ml) Isovue 300 37 Entry Location Entry Primary Successful Side Size Upsize Upsize Entry Closure Succes sful Closure Location (Fr) 1 (Fr) 2 (Fr) Remarks Device Remarks Femoral Right 6 Fr Exoseal artery Short Procedure Complications No complications Procedure Medications Medication Administration Route Dosage Oxygen NC 2 l/min Lidocaine 2% added to field 20 Heparin Flush Bag added to field 2 bags (1000units/500ml NS) 0.9% NaCl I.V. 100 ml/hr Heparin Bolus I.V. 4000 units Fentanyl I.V. 50 mcg Integrilin (Bolus I.V. 6.8 ml 2mg/ml) Lasix I.V. 40 mg Plavix P.O. 600 mg Fentanyl I.V. 50 mcg Hemodynamics Rest HGB: 10.5 (g/dl) Heart Rate: 75 (bpm) Snapshots Pre Cath Intra NCS Post Cath Vital Signs Time Heart Resp SPO2 etCO2 [id number] NIBP (mmHg) Rhythm Pain Sedation Rate (ipm) (%) (mmHg) (mmHg) Status Level (bpm) 8:48:08 75 16 96 0 0 180/100(155) NSR 0 (11) 10(A) , No pain 8:52:32 73 17 97 0 0 176/100(153) NSR 0 (11) 10(A) , No pain 8:56:56 71 17 99 0 0 173/98(150) NSR 0 (11) 10(A) , No pain 9:01:18 72 16 99 0 0 182/103(164) NSR 0 (11) 9(A) , No pain 9:05:44 72 15 98 0 0 170/107(162) NSR 0 (11) 10(A) , No pain 9:17:10 77 16 99 0 0 178/107(158) NSR 0 (11) 10(A) , No pain Medications Time Medication Route Dose Verified Delivered Reason Notes Effectiveness by by 8:52:40 Oxygen NC 2 Adelso Buffie used for l/min Amanda Grayson RN procedure 8:52:46 Lidocaine 2% added 20ml Adelso Buffie used for to vial Amanda Grayson structural metal fabricator apprentice field 8:52:52 Heparin Flush added 2 Adelso Buffie used for Bag to bags Amanda Grayson RN procedure (1000units/500ml field NS) 8:53:14 0.9% NaCl I.V. 100 Adelso Buffie Per physician ml/hr Amanda Grayson RN 8:59:46 Fentanyl I.V. 50 Adelso Scott for sedation mcg Amanda Grayson RN 9:01:39 Heparin Bolus I.V. 4000 Adelso Scott for verifie d units Amanda Grayson RN anticoagulation with dr patel 9:06:16 Integrilin I.V. 6.8 Adelsosudhakar Montanezie for (Bolus 2mg/ml) ml Amanda Grayson RN antiplatelet therapy 9:08:03 Fentanyl I.V. 50 Adelso Scott for sedation mcg Amanda Grayson RN 9:11:39 Lasix I.V. 40 mg Adelso Scott Per physician Amanda Grayson RN 9:13:40 Plavix P.O. 600 Adelso Scott for mg Amanda Grayson RN antiplatelet therapy Procedure Log Time Note 8:30:36 ACC Patient presents with Stable Angina CCS Anginal Class 2--Slight limitation of ordinary activity. 8:30:38 Diagnostic Cath status Elective 8:30:41 Naresh Ruiz RT(R) sent for patient. Start room use. 8:37:05 Time tracking: Regular hours 8:37:10 Plan of Care:Hemodynamics will remain stable., Cardiac rhythm will remain stable., Comfort level will be maintained., Respiratory function will remain adequate., Patient/ family verbilizes understanding of procedure., Procedure tolerated without complication., Recovers from procedure without complications.. 8:37:17 Patient received from Pre/Post Procedure Room to CCL 1 Alert and oriented. Tansferred to table in Supine position. 8:37:19 Warm blankets applied, and jana hugger turned on for patient comfort. 8:37:19 Correct patient and procedure confirmed by team. 8:37:20 Signed procedure consent form obtained from patient. 8:37:22 ECG and BP/O2 sat monitors applied to patient. 8:46:57 Vital chart was started 8:46:58 Baseline sample Acquired. 8:47:02 Rhythm: sinus rhythm 8:47:04 Full Disclosure recording started 8:47:09 H&P Date Dictated: 06/12/2016 Within 30 days and on chart.. 8:47:10 Pre-procedure instructions explained to patient. 8:47:11 Pre-op teaching completed and patient verbalized understanding. 8:47:25 Family unavailable. 8:47:27 Patient NPO since Midnight. 8:47:40 Patient allergic to No known allergies 8:47:43 Is the patient allergic to Iodine/contrast media? No. 8:50:09 Patient diabetic? No. 8:50:40 ----Pre-sedation anethsthesia assessment.---- 8:50:43 Previous problem with sedation/anesthesia? No ? 8:50:44 Snore? No 8:50:45 Sleep apnea? No 8:50:47 Deviated septum? No 8:50:49 Opens mouth fully? Yes 8:50:50 Sticks out tongue? Yes 8:50:52 Airway obstruction? No ? 8:50:54 Dentures? No ? 8:50:57 Pre procedure: right dorsailis pedis pulse 1+ Palpable, but thready & weak; easily obliterated 8:51:00 Patient pain scale 0/10 ?. 8:51:04 IV patent on arrival in left antecubital with 0.9% NaCl at 10ml/hr. 8:52:40 Oxygen 2 l/min NC was given by Sonia Grayson RN; used for procedure; 8:52:46 Lidocaine 2% 20ml vial added to field was given by Sonia Grayson RN; used for procedure; 8:52:52 Heparin Flush Bag (1000units/500ml NS) 2 bags added to field was given by Sonia Grayson RN; used for procedure; 8:53:14 0.9% NaCl 100 ml/hr I.V. was given by Sonia Grayson RN; Per physician; 8:57:24 Lab Result : BUN 37 mg/dl 8:57:24 Lab Result : Creatinine 4.4 mg/dl 8:57:24 Lab Result : Hemoglobin 10.5 g/dl 8:58:15 Lab results completed and on chart. 8:58:18 Right groin area was prepped with chlora-prep and draped in sterile fashion 8:58:19 Alarms reviewed by R. N. 8:58:20 Sharps counted by scrub and verified by R.N. 8:58:36 --------ALL STOP TIME OUT------ 8:58:36 Final Timeout: patient, procedure, and site verified with staff and physician. All members of the team are in agreement. 8:58:38 Right groin site verified by team. 8:58:41 Physical assessment completed. ASA score P 2 - A patient with mild systemic disease as per Adelso Patel MD. 8:58:45 Sedation plan: IV Moderate Sedation Versed, Fentanyl 8:59:45 Use device set Femoral PCI 8:59:46 Fentanyl 50 mcg I.V. was given by Sonia Grayson RN; for sedation; 8:59:48 Acist Syringe opened to sterile field. 8:59:49 Acist Hand Control opened to sterile field. 8:59:50 Bag Decanter opened to sterile field. 8:59:52 Medline Cath Pack opened to sterile field. 8:59:53 Terumo 6Fr [place] Sheath opened to sterile field. 8:59:53 St Luis Enrique 260cm J .035 wire opened to sterile field. 8:59:54 Merit BasixCompak Inflation Kit opened to sterile field. 8:59:55 Acist Manifold opened to sterile field. 9:00:08 Zuniga Whisper J 300cm 0.014 guide wire opened to sterile field. 9:00:09 Broadcast Grade Weather [employer] Branding Graphics Display System Launcher 6Fr AR 2.0 guide catheter opened to sterile field. 9:00:12 Procedure started. 9:00:16 Local anesthetic to right femoral artery with Lidocaine 2% by Adelso Patel MD.INITIAL ACCESS ONLY 9:00:30 A 6 Fr Short sheath was inserted into the Right Femoral artery 9:00:46 6 Fr AR 2 guide catheter was inserted over the wire 9:00:58 Zero performed for pressure channel P1 9:01:02 Zero performed for pressure channel P1 9:01:07 Zero performed for pressure channel P1 9:01:39 Heparin Bolus 4000 units I.V. was given by Sonia Grayson RN; for anticoagulation; verified with dr patel 9:02:02 WHISPER wire advanced. 9:02:54 FFR/IVUS 9:02:54 IVUS catheter advanced over wire. 9:02:57 IVUS pass to RCA lesion performed. 9:03:07 Procedure type changed to Cath procedure, Diagnostic procedure, LHC, FFR/IVUS, Intra-Coronary IVUS Initial, PCI procedure, Coronary Stent Initial, Miscellaneous Procedures, Moderate Sedation up to 15 minutes 9:05:09 IVUS catheter removed over wire. 9:05:18 ACC PCI Site: mRCA has 76% stenosis. 9:05:22 ACC Pre-intervention RAMU Flow is 2. 9:06:16 Integrilin (Bolus 2mg/ml) 6.8 ml I.V. was given by Sonia Grayson RN; for antiplatelet therapy; 9:07:03 Inflation Number: 1 A Medtronic Integrity 4.0 X 22 stent was prepped and advanced across the Mid RCA. The stent was deployed at 21 NGOZI for 0:17 (min:sec). 9:07:08 ACC Post-intervention RAMU Flow is 3. 9:07:08 Stent catheter was removed intact over wire. 9:07:09 Wire removed. 9:07:10 Guide catheter removed. 9:07:18 Sheath removed intact; hemostasis achieved with Exoseal to the Right Femoral artery. 9:07:23 Contrast amount:Isovue 300 37ml. 9:07:25 Procedure ended.(Physican Out) 9:07:43 Fluoroscopy time 02.00 minutes. 9:07:48 Flurop Dose total: 165 9:07:48 Fluoroscopy dose: 165 mGy 9:07:49 Sharps counted by scrub and verified by R.N. 9:07:50 Insertion/operative site no bleeding no hematoma. 9:07:53 Post-op/insertion site Right Femoral artery dressed using a 4 x 4 and Tegaderm. 9:07:56 Post right femoral artery:stable 9:07:58 Post Procedure Pulses reassessed and unchanged 9:08:00 Post procedure: right dorsailis pedis pulse 1+ Palpable, but thready & weak; easily obliterated. 9:08:03 Fentanyl 50 mcg I.V. was given by Sonia Grayson RN; for sedation; 9:08:03 Post procedure rhythm: sinus rhythm 9:08:04 Post procedure instruction explained to patient.Patient verbalizes understanding. 9:08:28 Cordis 6Fr Exoseal opened to sterile field. 9:08:42 Procedure and supply charges have been captured, reviewed, submitted and are correct. 9:08:48 Procedure Complication : No complications 9:08:50 Vital chart was stopped 9:08:51 See physician's report for complete and final results. 9:08:52 Report given to PCU. 9:08:55 Patient transfered to PCU with Bed. 9:08:57 Procedure ended. 9:08:57 Full Disclosure recording stopped 9:09:00 End room use (Document Last) 9:11:39 Lasix 40 mg I.V. was given by Sonia Grayson RN; Per physician; 9:13:40 Plavix 600 mg P.O. was given by Sonia Grayson RN; for antiplatelet therapy; 9:14:33 Pt reloaded on plavix due to inability to remember to take plavix at home. Intervention Summary Intervention Notes Time ActionType Lesion and Equipment Action# Pressure Duration Attributes Used 9:07:03 Place stent Mid RCA Medtronic 1 21 00:18 Integrity 4.0 X 22 stent Device Usage Item Name Manufacture Quantity Catalog Hospital Part Current Minimal L ot# / Number Charge Number Stock Stock Serial# Code Acist Acist 1 40118 187418 212203 028854 20 Syringe Medical Systems Inc Acist Hand Acist 1 85256 777531 194799 998093 5 Send Word Now Medical Systems Inc Bag Microtek 1 2002S 896321 34523 788056 5 Sleep Number Inc. Medline Cardinal 1 [id number] 594937 96179 835018 5 OpinewsTV Terumo 6Fr Terumo 1 [id number] 027468 069708 492074 [address] Luis Enrique 1 345244 738117 565060 790417 30 260cm J .035 wire Merit Merit 1 [id number] 283782 842807 469717 15 BasixCompak Medical Inflation Kit Acist Acist 1 02404 607871 907175 505248 5 Manifold Medical Systems Inc Zuniga Zuniga 1 [id number] 329022 942980 998071 5 Whisper J Vascular 300cm 0.014 guide wire Medtronic Medtronic 1 [id number] 474808 64098 939995 1 Launcher 6Fr AR 2.0 guide catheter Medtronic Medtronic 1 [id number] 932788 460186 244704 1 0 [id number] Integrity 4.0 X 22 stent Cordis 6Fr Cardinal 1 [id number] 108195 275892 523245 10 Alticast Signature Audit [place] Stage Time Signature Unsigned Intra-Procedure 06/12/2016 Naresh Ruiz 9:18:14 AM RT(R) Signatures Monitor : Naresh Ruiz RT Signature : Date : Time : [address] [place] [address]
[~2016-06-12 07:30] MED LIST: ASPIRIN81 MG PO; CATAPRES0.2 MG PO; COREG 3.1253.125 MG PO; COREG6.25 MG PO; DULCOLAX STOOL100 MG PO; FERREX 150 PLUS1 CAP PO; MIRALAX17 GM PO; NORVASC10 MG PO; PLAVIX75 MG PO
[2016-06-12 07:48] VITALS: BP 187/96; BMI 24.7
[2016-06-12 08:01] LABS: BASOPHILS 0.9 % (0.0-2.0); EOSINOPHILS 12.4 % (0-7); HEMATOCRIT 33.7 % (42.0-54.0); HEMOGLOBIN 10.5 g/dL (13.5-17.5); IMMATURE GRANULOCYTES 0.7 % (0-5); LYMPHOCYTES 15.6 % (15-50); MCH 29.2 pg (26.0-34.0); MCHC 31.2 g/dL (31.0-37.0); MCV 93.6 fL (80.0-100.0); MEAN PLATELET VOLUME 11.5 fL (7.4-10.4); MONOCYTES 8.2 % (2-11); NEUTROPHILS 62.2 % (40-80); RDW 13.9 % (11.5-14.5); WBC 6.7 10x3/uL (4.8-10.8)
[2016-06-12 08:23] LABS: ANION GAP 16.1 mmol/L (8-16); CALCIUM 8.5 mg/dL (8.5-10.1); CARBON DIOXIDE 21.2 mmol/L (21.0-32.0); CREATININE - SERUM 4.4 mg/dL (0.6-1.3); POTASSIUM - SERUM 4.3 mmol/L (3.5-5.1)
[2016-06-12 08:37] LABS: PLATELET COUNT 231 10x3/uL (130-400)
[2016-06-12 10:51] VITALS: BP 192/105; Ht 177.8 cm; Wt 78.2 kg
[2016-06-12 12:18] VITALS: BP 155/76
[2016-06-12 16:16] VITALS: BP 153/86
[2016-06-12 21:15] VITALS: BP 150/78
--- NOTE | 2016-06-13 01:33 | NUR ---
PT LAYING IN BED NO DISTRESS OBSERVED CALL LIGHT IN REACH. PT AMBULATORY WITH NO ASSISTANCE NEEDED. PT AMBULATED INTO HALLWAY DRESSED AND DEMANDED TO BE ABLE TO GO HOME PT STATED " I WANT THIS TAKEN OUT NOW AND I AM LEAVING" WENT AND SPOKE WITH PT ABOUT REASON HE WAS LEAVING AND PT STATED " I HAVE BEEN COLD AND I DONT WANT TO BE HERE ANYMORE I AM LEAVING AND NOTHING CAN STOP ME " INFORMED PT THAT WOULD BE AND AMA AND RISK INVOLED OF DRIVEING VEHICHAL WELL PT STATED " I AM NOT A DAMN 3 YEAR OLD AND I UNDERSTAD" DR DIMAS NOTIFED AND AMA FORM SIGNED IV DC'D CATH INTACT PT AMBULATED OUT OF ROOM AND TO THE ELEVATORS OFFERED ASSISTANCE TO PT PT STATED " I DONT NEED ANY DAMN HELP" AND WALKED OFF WITH NO ASSISTANCE NEEDED
--- NOTE | 2016-06-22 08:46 | OP ---
PATIENT NAME: DAVID KO MEDICAL RECORD: [id number] :45 LOCATION:D.CAT ADMISSION DATE: SURGEON: WILLIAN DIMAS MD DATE OF OPERATION: 06/12/2016 PROCEDURES: 1. PTCA stent RCA. 2. Selective coronary angiography. 3. Intravascular ultrasound RCA. PROCEDURE IN DETAIL: After informed consent was obtained and after a detailed explanation of risks, benefits as well as alternative therapies, the patient elected to proceed with angiogram and angioplasty. The right femoral area was prepped and draped in normal sterile fashion. The right femoral artery was cannulated via modified Seldinger technique with placement of 6-[place] Islander sheath. All catheters exchanged through this sheath. FINDINGS: The right coronary artery has greater than 75% stenosis confirmed by intravascular ultrasound in mid vessel. This was addressed with a 4.0 x 22 mm Integrity stent. Result was 0% residual stenosis. OVERALL IMPRESSION: Successful percutaneous transluminal coronary angioplasty stent of the right coronary artery greater than 75% initial stenosis confirmed by intravascular ultrasound to 0% residual stenosis. TRANSINT:[id number] Voice Confirmation ID: [id number] DOCUMENT ID: [id number] WILLIAN DIMAS MD at 0846 CC: [id number] DICTATION DATE: 06/12/16 0914 DIE TRIPPER: 06/12/16 1531 [facility] CLI 06/12/[address] [address]
--- NOTE | 2016-06-22 08:46 | HP ---
PATIENT: DAVID KO MEDICAL RECORD: [id number] ACCOUNT: [id number] LOCATION:RADHA : 45 ADMISSION DATE: 06/12/16 HISTORY AND PHYSICAL EXAMINATION ADMITTING DIAGNOSES: 1. Angina. 2. Coronary artery disease. 3. Recent percutaneous transluminal coronary angioplasty stent of the left circumflex and left anterior descending with concomitant disease of the right coronary artery. 4. Renal insufficiency. 5. Cardiomyopathy. 6. Hypertension. 7. Hyperlipidemia. HISTORY OF PRESENT ILLNESS: This is a gentleman who recently presented with a non-Q-wave myocardial infarction, found to have severe 3-vessel coronary artery disease, underwent successful PTCA stent of the LAD and left circumflex, now brought back for PTCA stent of the RCA since he has developed significant lower extremity edema. He does have cardiomyopathy, ejection fraction in the 40% range as well as renal insufficiency. PHYSICAL EXAMINATION: GENERAL APPEARANCE: Well nourished, well developed, appears stated age. Level of distress, comfortable. PSYCHIATRIC: Mental status, alert, normal affect. Orientation, oriented to time, place and person. EYES: Lids and conjunctiva, noninjected. No discharge, no pallor. ENT: Lips, teeth, gums, normal dentition. Oropharynx, no cyanosis, no pallor. NECK: Carotid arteries, bilateral normal upstroke, no bruits, no thrills. JUGULAR VEINS: No jugular venous pressure or distention. CERVICAL LYMPH NODES: Nontender, nonenlarged. THYROID: Not enlarged. Nontender. No nodules. LUNGS: Respiratory effort, unlabored. CHEST: Normal curvature. No thoracic deformity. No chest wall tenderness. Percussion, resonant. Auscultation, clear. No wheezes, no rales, no rhonchi. CARDIOVASCULAR: Precordial exam, nondisplaced. No heaves or pericardial thrills. Rate and rhythm, regular. Heart sounds, normal S1, normal S2. No S3, no gallop, no rub. Systolic murmur, not heard. Diastolic murmur, not heard. EXTREMITIES: No cyanosis, ____ edema. Peripheral pulses, full and equal in all extremities, except as noted. No bruits appreciated. ABDOMEN: Soft, nondistended. Normal aorta. No bruit. Nontender. No masses. Liver, nontender, no hepatomegaly. Spleen, nontender, no splenomegaly. MUSCULOSKELETAL: No joint tenderness. No joint swelling. No erythema. NEUROLOGICAL: Normal gait, normal strength, normal tone. SKIN: Warm and dry. REVIEW OF SYSTEMS: The patient reports easy bruising but reports no swollen glands. The patient reports no fever, no night sweats, no significant weight gain, no significant weight loss. No significant exercise tolerance. The patient reports no dry eyes, no irritation, no vision change. Patient reports no difficulty hearing and no ear pain. Patient reports no frequent nose bleeds or nose and sinus problems. Patient reports on arm pain on exertion. No shortness of breath while lying down. No history of heart murmur. Patient HISTORY AND PHYSICAL [id number] DAVID KO reports no cough, no wheezing or coughing up blood. Patient reports no abdominal pain, no vomiting. Normal appetite. No diarrhea and not vomiting blood. No nausea and no constipation. Patient reports no incontinence. No difficulty urinating. No hematuria. No increased frequency. Patient reports no muscle aches. No weakness, no arthralgias, no back pain. No swelling of the extremities. Patient reports no abnormal mole, no jaundice, no rashes. Reports no loss of consciousness. No weakness and no numbness. No seizures, dizziness, or headaches. The patient reports no depression, no sleep disturbance, feeling safe in a relationship and no alcohol abuse. Patient reports on fatigue. Reports no runny nose or sinus pressure. No itching, no hives, and no frequent sneezing. OVERALL IMPRESSION: We will proceed with PTCA stent of the right coronary artery. We will admit for diuresis and for the lower extremity edema as well. TRANSINT:[id number] Voice Confirmation ID: [id number] DOCUMENT ID: [id number] WILLIAN DIMAS MD at 0846 CC: [id number] DICTATION DATE: 06/12/16 0851 HYDROELECTRIC PLANT MAINTAINER: 06/12/16 1004 [facility] CLI 06/12/16 [place] [id number] [place] [id number]
== END 2016-06-12 21:35 | disposition left against medical advice (07) ==
LOC: D.CATH 07:30 → D.M2 09:29 → D.CATH 21:35
PROVIDERS: Internal Medicine Interventional Cardiology
DX: I25.119 Atherosclerotic heart disease of native coronary artery with unspecified angina pectoris (principal); Z95.5 Presence of coronary angioplasty implant and graft; N28.9 Disorder of kidney and ureter, unspecified; I10 Essential (primary) hypertension; I42.9 Cardiomyopathy, unspecified; E78.5 Hyperlipidemia, unspecified

== ENCOUNTER 2017-04-24 06:52 | Day surgery (SDC) | payer MEDICARE, BC ==
[~2017-04-24] VITALS: Ht 172.7 cm; Wt 60.7 kg
--- NOTE | ~2017-04-24 | OP ---
PATIENT NAME: DAVID KO MEDICAL RECORD: [id number] :45 LOCATION:[facility] ADMISSION DATE: SURGEON: DANIEL MONROY MD DATE OF OPERATION: 04/24/2017 PREOPERATIVE DIAGNOSIS: End-stage renal disease without chronic access for hemodialysis. POSTOPERATIVE DIAGNOSIS: End-stage renal disease without chronic access for hemodialysis. PROCEDURE: Creation of left brachiocephalic primary arteriovenous fistula for hemodialysis access. SURGEON: Daniel Monroy MD VOYAGE MANAGEMENT SYSTEM OPERATOR: None. BLOOD LOSS: Less than 100 cc. ANESTHESIA: General. COMPLICATIONS: None. The risks, possible complications, and alternatives to procedure were explained to the patient. He elects to proceed. The discussion specifically included, but was not limited to, bleeding requiring emergency reoperation, infection, steal syndrome, nerve injury. OPERATIVE COURSE: The patient was conveyed to the operating room electively on 04/24/2017. General anesthesia was induced by the anesthesia staff. The left upper extremity was abducted at 90 degrees to the patient's trunk. The left upper extremity was sterilely prepped and draped. A transverse incision was accomplished in the left cubital fossa. Sharp dissection was carried down to the level of cephalic vein, the median basilic vein, the basilic vein as well as the paired antebrachial veins. The antebrachial veins were ligated. I dissected down to the brachial artery, which was nicely sized and of good quality. Intravenous heparin was given. Vessel loops were placed around these vessels. A longitudinal arteriotomy and longitudinal venotomy on the median basilic vein were then accomplished. I then sutured the 2 vascular structures together with a running 7-0 Prolene suture. I then flushed out through the cephalic venous system as well as the basilic venous system. The patient was going to have a dual outflow. Amarilis was added to the wound for additional hemostasis. The subdermis was approximated with interrupted 3-0 Vicryls. The skin was approximated with a running intracuticular 4-0 Vicryl. A sterile dressing was applied. The patient was then extubated and conveyed to post-anesthesia care unit where he was in stable condition. TRANSINT:[id number] Voice Confirmation ID: [id number] DOCUMENT ID: [id number] OPERATIVE REPORT [id number] STEFANIDAVID ROBERT MD at 1131 CC: GRISEL BUSH MD, CARL RUIZ MD and JANNET PARADA [id number] DICTATION DATE: 05/16/17 1510 BI CONSULTANT: 05/16/[address] [facility] 04/25/17 [place] [id number] [place] [id number]
[2017-04-24] MEDS ORDERED: LEVOTHYROXINE50 MCG PO (08:09)
[2017-04-24] MEDS ORDERED: PRAVACHOL40 MG PO (08:09)
[2017-04-24] MEDS ORDERED: COZAAR50 MG PO (08:10)
[2017-04-24] MEDS ORDERED: FUROSEMIDE40 MG PO (08:11)
[2017-04-24] MEDS ORDERED: BUMEX2 MG PO (08:12)
[2017-04-24] MEDS ORDERED: PREDNISONE20 MG PO (08:12)
[2017-04-24 08:23] VITALS: BMI 19.8
[2017-04-24 08:38] LABS: BASOPHILS 0.2 % (0-2); EOSINOPHILS 1.5 % (0-7); HEMATOCRIT 37.6 % (42.0-54.0); HEMOGLOBIN 12.1 g/dL (13.5-17.5); IMMATURE GRANULOCYTES 0.4 % (0-5); LYMPHOCYTES 25.5 % (15-50); MCHC 32.2 g/dL (31.0-37.0); MCV 96.4 fL (80.0-100.0); MEAN PLATELET VOLUME 12.9 fL (7.4-10.4); MONOCYTES 7.6 % (2-11); NEUTROPHILS 64.8 % (40-80); RDW 14.8 % (11.5-14.5); WBC 4.7 10x3/uL (4.8-10.8)
[2017-04-24 08:40] LABS: PLATELET COUNT 122 10x3/uL (130-400)
[2017-04-24 08:46] LABS: APTT 29.4 SECONDS (22.8-39.4); INR 1.02 (0.85-1.17)
[2017-04-24 08:59] LABS: ANION GAP 14.2 mmol/L (8-16); CALCIUM 7.9 mg/dL (8.5-10.1); CARBON DIOXIDE 25.4 mmol/L (21.0-32.0); CREATININE - SERUM 5.3 mg/dL (0.6-1.3); POTASSIUM - SERUM 3.6 mmol/L (3.5-5.1)
[2017-04-24] MEDS ORDERED: COREG25 MG PO (09:23)
[2017-04-24] MEDS ORDERED: PLAVIX75 MG PO (09:24)
[2017-04-24] MEDS ORDERED: MULTI-DAY VITAM1 TAB PO (09:32)
[2017-04-25 02:50] VITALS: BP 213/90; Ht 172.7 cm; Wt 60.7 kg
[2017-04-25 03:54] VITALS: BP 163/81
[2017-04-25 08:30] VITALS: BP 151/67
[2017-04-25 16:06] VITALS: BP 160/71
== END 2017-04-25 17:26 ==
LOC: D.M2 06:52 → D.OPS 06:52 → D.PAN 09:00 → D.OPS 09:15 → D.PAN 12:00 → D.M2 20:28 → D.OPS 04-25 17:26
PROVIDERS: Anesthesiology
DX: I12.0 Hypertensive chronic kidney disease with stage 5 chronic kidney disease or end stage renal disease (principal); N18.6 End stage renal disease; Z99.2 Dependence on renal dialysis; E03.9 Hypothyroidism, unspecified; I25.10 Atherosclerotic heart disease of native coronary artery without angina pectoris; Z01.812 Encounter for preprocedural laboratory examination

== ENCOUNTER 2017-09-18 07:20 | Inpatient (IN) | payer MEDICARE ==
[~2017-09-18] VITALS: Ht 172.7 cm; Wt 71.5 kg
--- NOTE | ~2017-09-18 | OP ---
PATIENT NAME: DAVID KO MEDICAL RECORD: [id number] :45 LOCATION:D. D.2139 ADMISSION DATE:09/18/17 SURGEON: IZAIAH MONROY MD DATE OF OPERATION: 09/19/2017 PREOPERATIVE DIAGNOSES: End-stage renal disease with peripheral access for hemodialysis, desires removal of the tunneled catheter. POSTOPERATIVE DIAGNOSES: End-stage renal disease with peripheral access for hemodialysis, desires removal of the tunneled catheter. PROCEDURES: Removal of right-sided tunneled hemodialysis catheter. SURGEON: Izaiah Monroy MD ROOF CEMENT AND PAINT MAKER HELPER: None. BLOOD LOSS: Minimal. ANESTHESIA: Local with IV sedation. COMPLICATIONS: None. The risks, possible complication, alternatives to procedure were explained to the patient. He elects to proceed. OPERATIVE COURSE: The patient was conveyed to the operating room electively on 09/19/2017. General anesthesia was induced by the anesthesia staff. The right chest and neck were sterilely prepped and draped. A local anesthetic was used to infiltrate the skin and subcutaneous tissues around the catheter exit site. I bluntly dissected up through the subcutaneous tract. I removed the catheter and its cuff in their entireties. I then placed a 3-0 Vicryl Rapide suture around the catheter tract to prevent it from bleeding. A sterile dressing was then applied. The patient was then conveyed to post-anesthesia care unit where he was in stable condition. TRANSINT:[id number] Voice Confirmation ID: [id number] DOCUMENT ID: [id number] IZAIAH MONROY MD at 1227 CC: [id number] DICTATION DATE: 09/19/171702 SENIOR APPLICATION SECURITY CONSULTANT: 09/19/17 1744 DIS IN 09/20/17 [facility] [address] [place] [address]
--- NOTE | ~2017-09-18 | HP ---
PATIENT: DAVID KO MEDICAL RECORD: [id number] ACCOUNT: [id number] LOCATION:[facility] D.2139 : 45 ADMISSION DATE: 09/18/17 HISTORY AND PHYSICAL EXAMINATION REASON FOR ADMISSION: Subclavian thrombosis with right IJ tunneled catheter with positive blood cultures. HISTORY OF PRESENT ILLNESS: A 72-year-old gentleman new to dialysis with ESRD is dialyzing via a right IJ tunnel catheter. He has a positive blood culture and a thrombus in his left subclavian. He had been having some pain and was sent over for an ultrasound. REVIEW OF SYSTEMS: Related to above. No shortness of breath, nausea, vomiting, diarrhea. All other review of systems are negative. PAST MEDICAL HISTORY: 1. ESRD. 2. CHF with diastolic dysfunction managed with dialysis now. 3. Anemia of CKD. 4. Hyperphosphatemia. ALLERGIES: Will review. SOCIAL HISTORY: No tobacco, alcohol or drugs. He is and retired. FAMILY HISTORY: Noncontributory for renal insufficiency. PAST SURGICAL HISTORY: Right IJ tunneled catheter placement and complete surgical base. We are admitting him for his IJ thrombus. PHYSICAL EXAMINATION: VITAL SIGNS: Blood pressure 142/72, 72 heart rate, 18 respiratory rate. GENERAL: He is alert, oriented times 3. HEENT: Normocephalic and atraumatic. Cranial nerves II through XII are intact. Right IJ tunneled catheter with some swelling to his right upper extremity. LUNGS: Clear. CHEST: Regular rhythm without rub. Occasional ectopic beat. EXTREMITIES: Trace lower extremity edema. NEUROLOGIC: No focal neurological deficits. He is able to ambulate without difficulties. LABORATORY DATA: Being sent CMP, CBC. He had blood cultures at his home dialysis unit. We will check his vancomycin level and consult surgery. ASSESSMENT AND PLAN: 1. ESRD. Continue dialysis prescription. We will discuss with surgery using his dialysis catheter. The thrombus is in his right IJ. 2. Tunnel catheter infection. We will review his antibiotics. He may need vancomycin if level is less than 20. 3. Hypertension. 4. Diastolic dysfunction managed with fluid removal. 5. Anemia of CKD. 6. Hyperphosphatemia. 7. Secondary hyperparathyroidism. HISTORY AND PHYSICAL [id number] DAVID KO PLAN: 1. Please see orders. 2. Appreciate Dr. Mayo. TRANSINT:[id number] Voice Confirmation ID: [id number] DOCUMENT ID: [id number] ALLYN BUENO MD at 1159 CC: [id number] DICTATION DATE: 09/18/17 1310 MGMT SPECIALIST: 09/18/17 1320 DIS IN 09/20/17 [facility] [address] [place] [address]
[~2017-09-18 07:20] MED LIST changes: +BUMEX2 MG PO; +COREG25 MG PO; +COZAAR50 MG PO; +FUROSEMIDE40 MG PO; +LEVOTHYROXINE50 MCG PO; +MULTI-DAY VITAM1 TAB PO; +PRAVACHOL40 MG PO; +PREDNISONE20 MG PO
[2017-09-18 14:57] LABS: BASOPHILS 0.2 % (0-2); EOSINOPHILS 1.7 % (0-7); HEMATOCRIT 38.4 % (42.0-54.0); HEMOGLOBIN 12.1 g/dL (13.5-17.5); IMMATURE GRANULOCYTES 0.6 % (0-5); LYMPHOCYTES 14.2 % (15-50); MCH 31.3 pg (26.0-34.0); MCHC 31.5 g/dL (31.0-37.0); MCV 99.2 fL (80.0-100.0); MEAN PLATELET VOLUME 10.6 fL (7.4-10.4); MONOCYTES 9.3 % (2-11); RBC 3.87 10x6/uL (4.20-6.10); RDW 14.2 % (11.5-14.5); WBC 10.5 10x3/uL (4.8-10.8)
[2017-09-18 15:10] LABS: INR 1.01 (0.85-1.17); PROTIME 12.9 SECONDS (11.6-15.0)
[2017-09-18 15:11] LABS: ALBUMIN 3.1 g/dL (3.4-5.0); ANION GAP 20.6 mmol/L (8-16); BILIRUBIN - TOTAL 0.3 mg/dL (0.2-1.3); CALCIUM 7.4 mg/dL (8.5-10.1); CARBON DIOXIDE 22.2 mmol/L (21.0-32.0); CREATININE - SERUM 9.4 mg/dL (0.6-1.3); POTASSIUM - SERUM 4.8 mmol/L (3.5-5.1)
[2017-09-18 15:16] LABS: PLATELET COUNT 164 10x3/uL (130-400)
[2017-09-18 15:18] LABS: PHOSPHOROUS 9.7 mg/dL (2.5-4.9)
[2017-09-18 15:45] VITALS: BMI 21.3
[2017-09-18 20:00] VITALS: BP 136/60
[2017-09-19] VITALS: BP 119/58
[2017-09-19 06:01] LABS: BASOPHILS 0.5 % (0-2); EOSINOPHILS 2.7 % (0-7); HEMATOCRIT 36.1 % (42.0-54.0); HEMOGLOBIN 11.5 g/dL (13.5-17.5); IMMATURE GRANULOCYTES 0.5 % (0-5); LYMPHOCYTES 15.5 % (15-50); MCH 31.3 pg (26.0-34.0); MCHC 31.9 g/dL (31.0-37.0); MCV 98.1 fL (80.0-100.0); MEAN PLATELET VOLUME 11.2 fL (7.4-10.4); MONOCYTES 7.4 % (2-11); NEUTROPHILS 73.4 % (40-80); PLATELET COUNT 150 10x3/uL (130-400); RBC 3.68 10x6/uL (4.20-6.10); RDW 14.2 % (11.5-14.5); WBC 8.3 10x3/uL (4.8-10.8)
[2017-09-19 06:27] LABS: INR 1.07 (0.85-1.17); PROTIME 13.5 SECONDS (11.6-15.0)
[2017-09-19 06:28] LABS: ALBUMIN 2.6 g/dL (3.4-5.0); ANION GAP 24.1 mmol/L (8-16); BILIRUBIN - TOTAL 0.28 mg/dL (0.2-1.3); CALCIUM 7.4 mg/dL (8.5-10.1); CREATININE - SERUM 10.4 mg/dL (0.6-1.3); POTASSIUM - SERUM 5.1 mmol/L (3.5-5.1); PROTEIN - SERUM 5.3 g/dL (6.4-8.2)
[2017-09-19 06:30] LABS: PHOSPHOROUS 10.9 mg/dL (2.5-4.9)
[2017-09-19 08:35] VITALS: BP 116/58
[2017-09-19 13:34] VITALS: Ht 172.7 cm; Wt 71.5 kg
[2017-09-19 20:00] VITALS: BP 114/54
[2017-09-20 01:51] VITALS: BP 135/66
[2017-09-20 05:50] LABS: BASOPHILS 0.4 % (0-2); EOSINOPHILS 2.2 % (0-7); HEMATOCRIT 35.1 % (42.0-54.0); HEMOGLOBIN 11.2 g/dL (13.5-17.5); IMMATURE GRANULOCYTES 0.5 % (0-5); MCH 30.8 pg (26.0-34.0); MCHC 31.9 g/dL (31.0-37.0); MCV 96.4 fL (80.0-100.0); MEAN PLATELET VOLUME 10.8 fL (7.4-10.4); NEUTROPHILS 75.9 % (40-80); PLATELET COUNT 138 10x3/uL (130-400); RBC 3.64 10x6/uL (4.20-6.10); WBC 7.8 10x3/uL (4.8-10.8)
[2017-09-20 05:54] VITALS: BP 115/56
[2017-09-20 06:39] LABS: ANION GAP 20.4 mmol/L (8-16); CALCIUM 7.6 mg/dL (8.5-10.1); CARBON DIOXIDE 22.2 mmol/L (21.0-32.0); CREATININE - SERUM 8.7 mg/dL (0.6-1.3); POTASSIUM - SERUM 5.6 mmol/L (3.5-5.1)
[2017-09-20] MEDS ORDERED: ELIQUIS2.5 MG PO (08:11)
[2017-09-20 08:18] VITALS: BP 104/57
[2017-09-20 08:20] LABS: HEP B CORE AB TOTAL Negative (Negative)
== END 2017-09-20 09:09 | disposition home or self-care (01) | DRG 314 ==
LOC: D.US 07:20 → D.M2 13:12 → D.SDCHOLD 13:12 → D.M2 14:05
PROVIDERS: Internal Medicine Nephrology; Surgery
PROC: 5A1D70Z Performance of Urinary Filtration, Intermittent, Less than 6 Hours Per Day (ICD-10-PCS; 2017-09-18)
PROC: 05PY33Z Removal of Infusion Device from Upper Vein, Percutaneous Approach (ICD-10-PCS; principal; 2017-09-19 14:15)
DX: T82.7XXA Infection and inflammatory reaction due to other cardiac and vascular devices, implants and grafts, initial encounter (principal); N18.6 End stage renal disease; I13.2 Hypertensive heart and chronic kidney disease with heart failure and with stage 5 chronic kidney disease, or end stage renal disease; I50.30 Unspecified diastolic (congestive) heart failure; N25.81 Secondary hyperparathyroidism of renal origin; I82.C11 Acute embolism and thrombosis of right internal jugular vein; Y83.8 Other surgical procedures as the cause of abnormal reaction of the patient, or of later complication, without mention of misadventure at the time of the procedure; Z99.2 Dependence on renal dialysis; Z86.73 Personal history of transient ischemic attack (TIA), and cerebral infarction without residual deficits; D63.1 Anemia in chronic kidney disease; E83.39 Other disorders of phosphorus metabolism

== ENCOUNTER 2019-04-04 07:06 | Inpatient (IN) | payer MEDICARE ==
[~2019-04-04] VITALS: Ht 172.7 cm; Wt 67.6 kg
[~2019-04-04 07:06] MED LIST changes: +ELIQUIS2.5 MG PO
[2019-04-04 07:28] LABS: BASOPHILS 0.2 % (0-2); EOSINOPHILS 0.1 % (0-7); HEMATOCRIT 32.6 % (42.0-54.0); HEMOGLOBIN 10.4 g/dL (13.5-17.5); IMMATURE GRANULOCYTES 0.2 % (0-5); LYMPHOCYTES 3.5 % (15-50); MCH 30.6 pg (26.0-34.0); MCHC 31.9 g/dL (31.0-37.0); MCV 95.9 fL (80.0-100.0); MEAN PLATELET VOLUME 12.4 fL (7.4-10.4); MONOCYTES 4.6 % (2-11); NEUTROPHILS 91.4 % (40-80); PLATELET COUNT 94 10x3/uL (130-400); RDW 14.8 % (11.5-14.5); WBC 9.9 10x3/uL (4.8-10.8)
[2019-04-04 07:33] LABS: APTT 41.4 SECONDS (22.8-39.4); INR 1.52 (0.85-1.17); PROTIME 17.7 SECONDS (11.6-15.0)
[2019-04-04 07:43] LABS: ANION GAP 13.7 mmol/L (8-16); CALCIUM 9.2 mg/dL (8.5-10.1); CARBON DIOXIDE 29.1 mmol/L (21.0-32.0); POTASSIUM - SERUM 3.8 mmol/L (3.5-5.1)
[2019-04-04 07:49] LABS: ALBUMIN 2.9 g/dL (3.4-5.0); BILIRUBIN - TOTAL 1.08 mg/dL (0.2-1.3); PROTEIN - SERUM 6.3 g/dL (6.4-8.2)
[2019-04-04 07:52] LABS: PLATELET ESTIMATE DECREASED
--- NOTE | 2019-04-04 08:51 | NUR ---
PT HAVING LOOSE BMS, WITH BRIGHT RED BLOOD NOTED. BACK FROM CT, ANOTHER LOOSE BM .
[2019-04-04 08:52] VITALS: BP 140/72
[2019-04-04 09:47] VITALS: BP 133/66
--- NOTE | 2019-04-04 10:30 | NUR ---
TRANSFER FROM ER BY STRETCHER. OREINTED TO ROOM. CALL LIGHT IN REACH. WILL CONT. PLAN OF CARE.
[2019-04-04] MEDS ORDERED: PHOSLO667 MG PO (10:38)
[2019-04-04 10:43] VITALS: BP 133/66; BMI 23.4
[2019-04-04 13:16] VITALS: BP 113/60
--- NOTE | 2019-04-04 14:47 | MORECARE ---
CASE MANAGEMENT DISCHARGE SUMMARY PATIENT: DAVID KO UNIT: [id number] ADM DATE: 04/04/19 AGE: 73 : 45 SEX: M ROOM/BED: D.2102 AUTHOR: ALEXANDRIA,ALFRED PHYSICIAN: REFERRING PHYSICIAN: DANIEL DENT MD DATE OF SERVICE: 04/04/19 Discharge Plan Patient Name: DAVID KO Facility: [facility]:[place] : 1945 Planned Disposition: Home Anticipated Discharge Date: 04/06/19 Discharge Date: Expected LOS: 2 Initial Reviewer: [email or web address] Initial Review Date: 04/04/2019 Generated: 04/04/19 3:46 pm DCP- Discharge Planning Updated by [email or web address]: Alana Pichardo on 04/04/19 1:[address] DC PLAN: Return to the [facility] alone. [facility] @ [facility]. ANTICIPATED DC NEEDS: Denies dc needs. CM met with patient to complete initial dc planning assessment. CM educated patient on the CM role and verbal consent given by patient to complete assessment. CM verified patient's address, phone number, and emergency contact phone numbers. Patient lives at the [facility] alone and reports he is indpendent with his ADL's. At discharge patient plans to return home and feels this is a safe discharge. He transports himself to and from [facility] on MWF. CM discussed availability of home health, rehab services, and medical equipment. Patient denied known discharge needs at this time. Transportation provider at discharge will be a cab. CM will continue to follow and will assist as needed with dc plans/needs. Alana Pichardo RN, [facility] DCPIA - Discharge Planning Initial Assessment Updated by [email or web address]: Alana Pichardo on 04/04/19 2:42 pm * Is the patient Alert and Oriented? Yes * How many steps to enter\exit or inside your home? elevator * PCP Dr. Dent * Pharmacy [facility]/ * Preadmission Environment Home Alone * ADLs Independent * Equipment Rolling Walker * List name and contact numbers for known caregivers / representatives who currently or will assist patient after discharge: Bonnie Ko -daughter- [phone] * Verbal permission to speak to the caregivers and representatives has been obtained from the patient. Yes * Community resources currently utilized Other * Please name any agencies selected above. OP HD MWF @ [facility]. Drives himself to and from HD. * Additional services required to return to the preadmission environment? No * Can the patient safely return to the preadmission environment? Yes * Has this patient been hospitalized within the prior 30 days at any hospital? No Patient Name: DAVID KO Page [id number] at 1447 All edits/amendments must be made on the electronic document DICTATION DATE: 04/04/19 1446 MEDICAL ADMINISTRATIVE SPECIALIST: KING 04/04/19 1446 RPT#: [id number] DC DATE: STATUS: ADM IN [facility] [address] [place] [address] END OF REPORT
--- NOTE | 2019-04-04 19:10 | NUR ---
AWAKE AND ALERT AND DENIES NEEDS I SHOWED PT USE OF CALL LIGHT AND BED IS LOW AND LOCKED
[2019-04-04 19:54] VITALS: BP 144/73
[2019-04-04 20:00] VITALS: BP 144/71
[2019-04-05] VITALS: BP 129/69
--- NOTE | 2019-04-05 01:04 | NUR ---
I have reviewed this patient and I concur with the Shift Assessment completed by the Licensed Practical Nurse today this shift.
[2019-04-05 04:00] VITALS: BP 138/64
[2019-04-05 05:13] LABS: BASOPHILS 0.1 % (0-2); EOSINOPHILS 1.1 % (0-7); HEMATOCRIT 30.9 % (42.0-54.0); HEMOGLOBIN 9.8 g/dL (13.5-17.5); IMMATURE GRANULOCYTES 0.3 % (0-5); LYMPHOCYTES 4.8 % (15-50); MCH 30.5 pg (26.0-34.0); MCHC 31.7 g/dL (31.0-37.0); MCV 96.3 fL (80.0-100.0); MEAN PLATELET VOLUME 13.2 fL (7.4-10.4); MONOCYTES 3.8 % (2-11); NEUTROPHILS 89.9 % (40-80); PLATELET COUNT 110 10x3/uL (130-400); RBC 3.21 10x6/uL (4.20-6.10); RDW 14.4 % (11.5-14.5); WBC 7.9 10x3/uL (4.8-10.8)
[2019-04-05 05:19] LABS: ANION GAP 15.3 mmol/L (8-16); CALCIUM 8.5 mg/dL (8.5-10.1); CARBON DIOXIDE 26.6 mmol/L (21.0-32.0); POTASSIUM - SERUM 3.9 mmol/L (3.5-5.1)
--- NOTE | 2019-04-05 07:26 | NUR ---
RECIEVE REPORT. RESTING IN BED WITH EYES CLOSED. RESPIRATIONS EVEN NONLABORED. NO SIGNS OF DISTRESS. CONTINUE PLAN OF CARE AND SAFETY PRECAUTIONS.
[2019-04-05 08:55] VITALS: BP 139/70
[2019-04-05 11:51] VITALS: BP 138/75
[2019-04-05 16:40] VITALS: BP 134/68
--- NOTE | 2019-04-05 16:58 | NUR ---
ALERT AND ORIENTED X4. SITTING UP IN BED. REFUSES TO TAKE HOSPITAL MEDICATIONS. HOME MEDICATIONS IN ROOM. OK TO TAKE HOME MEDICATIONS PER RICHAR GREENFIELD. DENIES ANY NEEDS AT THIS TIME. CONTINUE PLAN OF CARE AND SAFETY PRECAUTIONS.
--- NOTE | 2019-04-05 19:05 | NUR ---
PT AROUSES EASILY AND ASKS FOR SOME HYGIENE SUPPLIES THESE WERE PROVIDED I ASKED PT ABOUT TAKIONG HIS OWN MEDS AND HE SAID IM NOT TAKING YOURS I ASKED SO WHAT ABOUT YOUR MEDS TONIGHT AND HE SAID I HAVE ALREADY TAKEN ALL THAT I TAKE. LCTA BOWEL SOUNDS X4 AND PT REPORTS DIARREAH IS GONE. BED LOW AND LOCKED AND CALL LIGHT IS WITH PT
[2019-04-05 20:00] VITALS: BP 138/71; BP 196/82
--- NOTE | 2019-04-05 23:43 | NUR ---
FOUND PATIENT WITH IV OUT DURING RT CHECK PT REFUSES TO HAVE IT REPLACED HE STATES IM LEAVING IN THE MORNING YOU DO NOT HAVE AUTHORITY OVER ME NO BLEEDINF FROM SITE AND CATH IS INTACT
[2019-04-06 00:28] VITALS: BP 148/75
--- NOTE | 2019-04-06 03:28 | NUR ---
I have reviewed this patient and I concur with the Shift Assessment completed by the Licensed Practical Nurse today this shift.
[2019-04-06 03:57] LABS: BASOPHILS 0.3 % (0-2); EOSINOPHILS 3.4 % (0-7); HEMATOCRIT 31.2 % (42.0-54.0); IMMATURE GRANULOCYTES 0.3 % (0-5); LYMPHOCYTES 5.4 % (15-50); MCH 30.6 pg (26.0-34.0); MCHC 32.1 g/dL (31.0-37.0); MCV 95.4 fL (80.0-100.0); MEAN PLATELET VOLUME 10.9 fL (7.4-10.4); MONOCYTES 4.9 % (2-11); NEUTROPHILS 85.7 % (40-80); RBC 3.27 10x6/uL (4.20-6.10); RDW 14.5 % (11.5-14.5)
[2019-04-06 04:22] LABS: ANION GAP 14.1 mmol/L (8-16); CALCIUM 8.4 mg/dL (8.5-10.1); CARBON DIOXIDE 26.6 mmol/L (21.0-32.0); CREATININE - SERUM 7.1 mg/dL (0.6-1.3); POTASSIUM - SERUM 3.7 mmol/L (3.5-5.1)
[2019-04-06 04:23] LABS: PLATELET COUNT 139 10x3/uL (130-400)
[2019-04-06 04:30] VITALS: BP 130/67
--- NOTE | 2019-04-06 07:15 | NUR ---
RECIEVE REPORT. SITTING UP IN BED WATCHING TV. NO IV ACCESS. PATIENT STATES, "YOU AREN'T PUTTING THAT BACK IN MY ARM. I TOOK IT OUT BECAUSE IT'S BULLSHIT." NOTIFIED. DENIES ANY NEEDS AT THIS TIME. CONTINUE PLAN OF CARE AND SAFETY PRECAUTIONS.
[2019-04-06 10:27] VITALS: BP 147/71
[2019-04-06 14:48] VITALS: Ht 172.7 cm; Wt 67.6 kg
[2019-04-06 17:00] VITALS: BP 154/70
--- NOTE | 2019-04-06 19:17 | NUR ---
PT STATES TO ME HE IS GOING HOME TOMORROW AND THERE IS NO NEED FOR MY CARE SO I CAN GO HOME...BED IS LOW AND LOCKED SRX2 AQND PT HAS CALL LIGHT
[2019-04-06 20:00] VITALS: BP 156/72
[2019-04-07] VITALS: BP 154/44
--- NOTE | 2019-04-07 02:08 | NUR ---
I have reviewed this patient and I concur with the Shift Assessment completed by the Licensed Practical Nurse today this shift.
[2019-04-07 04:00] VITALS: BP 140/72
[2019-04-07 06:19] LABS: BASOPHILS 0.4 % (0-2); EOSINOPHILS 4.6 % (0-7); HEMATOCRIT 31.6 % (42.0-54.0); HEMOGLOBIN 9.9 g/dL (13.5-17.5); LYMPHOCYTES 11.4 % (15-50); MCH 30.4 pg (26.0-34.0); MCHC 31.3 g/dL (31.0-37.0); MCV 96.9 fL (80.0-100.0); MEAN PLATELET VOLUME 11.8 fL (7.4-10.4); MONOCYTES 7.6 % (2-11); PLATELET COUNT 146 10x3/uL (130-400); RBC 3.26 10x6/uL (4.20-6.10); RDW 14.5 % (11.5-14.5); WBC 5.4 10x3/uL (4.8-10.8)
[2019-04-07 06:35] LABS: ANION GAP 12.8 mmol/L (8-16); CALCIUM 8.1 mg/dL (8.5-10.1); CARBON DIOXIDE 28.8 mmol/L (21.0-32.0); CREATININE - SERUM 6.1 mg/dL (0.6-1.3); POTASSIUM - SERUM 3.6 mmol/L (3.5-5.1)
--- NOTE | 2019-04-07 07:20 | NUR ---
RECIEVE REPORT. ALERT AND ORIENTED X4. SITTING UP ON SIDE OF BED. PATIENT STATES, "I'M READY TO GO HOME." EXPLAIN NO ORDER IN COMPUTER FOR DISCHARGE. DENIES ANY NEEDS. CONTINUE PLAN OF CARE AND SAFETY PRECAUTIONS.
[2019-04-07 10:57] VITALS: BP 155/70
[2019-04-07 12:00] VITALS: BP 139/66
[2019-04-07 18:32] VITALS: BP 141/78
--- NOTE | 2019-04-07 19:15 | NUR ---
AWAKE IN ROOM BED LOW AND LOCKED PT DENIES NEEDS AT THIS TIME CALL LIGHT IS WITH PT SAFTY CHECK DONE
[2019-04-07 20:00] VITALS: BP 148/69
[2019-04-08 00:27] VITALS: BP 145/59
--- NOTE | 2019-04-08 04:18 | NUR ---
I have reviewed this patient and I concur with the Shift Assessment completed by the Licensed Practical Nurse today this shift.
[2019-04-08 04:30] VITALS: BP 161/71
[2019-04-08 05:56] LABS: ANION GAP 13.1 mmol/L (8-16); CALCIUM 9.5 mg/dL (8.5-10.1); CARBON DIOXIDE 29.3 mmol/L (21.0-32.0); CREATININE - SERUM 7.2 mg/dL (0.6-1.3); PHOSPHOROUS 5.2 mg/dL (2.5-4.9); POTASSIUM - SERUM 3.4 mmol/L (3.5-5.1)
[2019-04-08 06:47] LABS: BASOPHILS 0.3 % (0-2); EOSINOPHILS 4.5 % (0-7); HEMATOCRIT 35.9 % (42.0-54.0); HEMOGLOBIN 11.1 g/dL (13.5-17.5); IMMATURE GRANULOCYTES 0.1 % (0-5); MCH 29.8 pg (26.0-34.0); MCHC 30.9 g/dL (31.0-37.0); MCV 96.5 fL (80.0-100.0); MEAN PLATELET VOLUME 13.3 fL (7.4-10.4); MONOCYTES 5.2 % (2-11); NEUTROPHILS 77.9 % (40-80); PLATELET COUNT 152 10x3/uL (130-400); RBC 3.72 10x6/uL (4.20-6.10); RDW 14.4 % (11.5-14.5); WBC 6.7 10x3/uL (4.8-10.8)
--- NOTE | 2019-04-08 07:25 | NUR ---
PT LYING IN BED. WATCHING TV. PT STATES HE THINKS HE IS GOING HOME TODAY AFTER HD. I VERBALIZED UNDERSTANDING. PT ALSO STATES HE WILL TAKE HIS MEDS FROM HOME EXCEPT THE ANTBIOTICS. I VRBALIZED UNDERSTANDING. PT HAS NOT FURTHER NEEDS AT THIS TIME. BED LOW. CL IN REACH.
[2019-04-08 08:32] VITALS: BP 171/82
--- NOTE | 2019-04-08 09:56 | MORECARE ---
CASE MANAGEMENT DISCHARGE SUMMARY PATIENT: DAVID KO UNIT: [id number] ADM DATE: 04/04/19 AGE: 73 : 45 SEX: M ROOM/BED: D.0505 AUTHOR: ALFRED IBRAHIM PHYSICIAN: REFERRING PHYSICIAN: DANIEL DENT MD DATE OF SERVICE: 04/08/19 Discharge Plan Patient Name: DAVID KO Facility: [facility]:[place] : 1945 Planned Disposition: Home Anticipated Discharge Date: 04/08/19 Discharge Date: Expected LOS: 4 Initial Reviewer: [id number] Initial Review Date: 04/04/2019 Generated: 04/08/19 10:56 am Comments DCP- Discharge Planning Updated by [email or web address]: Lucius Baeza on 04/08/19 8:[address] Patient Name: DAVID KO Encounter No: [id number] : 1945 Primary Insurance: [facility] [employer] Anticipated DC Date: 04-08-2019 Planned Disposition: Home DCP follow-up note: CM MET WITH PT IN ROOM TO DISCUSS DISCHARGE NEEDS AND PLANNING. CM DISCUSSED AVAILABILITY OF HOME HEALTH, REHAB SERVICES AND MEDICAL EQUIPMENT. PT DENIES DISCHARGE NEEDS. PT WILL TAKE [facility] BACK TO [facility] FOR TRANSPORT HOME AT DISCHARGE TODAY. IMPORTANT MESSAGE FROM MEDICARE PROVIDED AND EXPLAINED. Lucius Baeza CASE MANAGEMENT DCP- Discharge Planning Updated by [email or web address]: Alana Pichardo on 04/04/19 1:[address] DC PLAN: [facility] MWF @ [facility]. ANTICIPATED DC NEEDS: Denies dc needs. CM met with patient to complete initial dc planning assessment. CM educated patient on the CM role and verbal consent given by patient to complete assessment. CM verified patient's address, phone number, and emergency contact phone numbers. [facility] and reports he is indpendent with his ADL's. At discharge patient plans to return home and feels this is a safe discharge. He transports himself to and from @[facility] on MWF. CM discussed availability of home health, rehab services, and medical equipment. Patient denied known discharge needs at this time. Transportation provider at discharge will be a cab. CM will continue to follow and will assist as needed with dc plans/needs. Alana Pichardo RN, [facility] [place] DCPIA - Discharge Planning Initial Assessment Updated by [id number]: Alana Pichardo on 04/04/19 2:42 pm * Is the patient Alert and Oriented? Yes * How many steps to enter\exit or inside your home? elevator * PCP Dr. Dent * Pharmacy [facility] * Preadmission Environment Home Alone * ADLs Independent * Equipment Rolling Walker * List name and contact numbers for known caregivers / representatives who currently or will assist patient after discharge: Bonnie Ko -daughter- [phone] * Verbal permission to speak to the caregivers and representatives has been obtained from the patient. Yes * Community resources currently utilized Other * Please name any agencies selected above. OP HD MWF @ [facility]. Drives himself to and from HD. * Additional services required to return to the preadmission environment? No * Can the patient safely return to the preadmission environment? Yes * Has this patient been hospitalized within the prior 30 days at any hospital? No Coverage Notice Reviewer: [id number] Loida Baeza Notice Issued Date-Time: 04/08/2019 9:18 Notice Type: IM Discharge Notice Notice Delivered To: Patient Relationship to Patient: Deep Fat Cook Fry Name: Delivery Method: HAND - Hand Delivered Maria Teresa Days: Prior Verbal Notification: Recipient Understood Notice: Yes Recipient Signature: Yes Med Rec Note Co-signed by Attending: Coverage Notice Comment: Last DP export: 04/04/19 1:47 p Patient Name: DAVID KO Page [id number] at 0956 All edits/amendments must be made on the electronic document DICTATION DATE: 04/08/19955 VISUAL ASSOCIATE: KING 04/08/19955 RPT#: [id number] DC DATE: STATUS: ADM IN [facility] [address] [place] [address] END OF REPORT
[2019-04-08] MEDS ORDERED: Levaquin PO (10:30)
[2019-04-08] MEDS ORDERED: FLAGYL500 MG PO (10:30)
[2019-04-08] MEDS ORDERED: LEVOFLOXACIN500 MG PO (10:42)
--- NOTE | 2019-04-08 10:50 | NUR ---
[id number] ON HOLD FOR NIALL ON . SPOKE TO SACHA, PHARMACIST AND CALLED IN LEVAQUIN 250 MG # 5
[2019-04-08 11:51] VITALS: BP 166/81
--- NOTE | 2019-04-08 12:30 | NUR ---
RECEIVED NOTICE FROM BEDSIDE NURSE THAT THE DIALYSIS UNIT IS NOW SAYING THEY CAN'T GET THE PATIENT FOR ANOTHER HOUR TO AND HOUR AND A HALF BECAUSE SHE HAD PAPERWORK AND SOMETHING ELSE TO DO. LUPE (DIALYSIS NURSE) WAS SPOKEN TO AROUND 0900 AND IT WAS EXPLAINED TO HER BY MISAEL PAIGE RN CM THAT THIS PATIENT IS TO RECEIVE HD AND DISCHARGE HOME AND WE NEEDED THEM TO BE FIRST. LUPE STATED AT THAT TIME IT WOULD BE AN HOUR TO AN HOUR AND HALF BEFORE SHE COULD GET PATIENTS. I CALLED AND SPOKE WITH ADAM PUGH, DIALYSIS COORDINATOR TO SEE WHO WE NEEDED TO CALL AND SPEAK TO ABOUT THIS AND SHE HAD MISAEL HDZ RN CHECK VIEWER NEXT TO HER AND I SPOKE TO HER ABOUT THIS. I WAS INSTRUCTED TO CALL HER IF WE HAVE PROBLEMS LIKE THIS IN THE FUTURE. I DID VERIFY HER NUMBER AND EXPLAINED I TRIED TO CONTACT HER LAST WEEK OVER THE SAME THING WITH PATIENTS (THIS BEING ONE OF THEM). WHEN CONVERSATION ENDED, THEY WILL BE UP CALLING FOR PATIENTS HERE SHORTLY.
--- NOTE | 2019-04-08 12:30 | NUR ---
PT TAKEN TO DIALYSIS VIA WC BY STAINED GLASS ARTIST.
--- NOTE | 2019-04-08 16:34 | NUR ---
PT RETURNED FROM DIALYSIS AND WALKED HIMSELF TO THE FLOOR. PT GIVEN DISCHARGE PAPERS ANDDISCHARGE TEACHING DONE. PT HAS NO FURTHER QUESTIONS. DISCHARGE COPY SIGNED. PT HAS NO IV AND NO TELEMETRY. PT DENIED WC TO BE TAKEN DOWN IN . PT WALKED HIMSELF DOWN WITH BELONGINGS.
--- NOTE | 2019-04-09 07:16 | DS ---
PATIENT:DAVDI ROMAN :[birth year] MEDICAL RECORD: [id number] DISCHARGE SUMMARY ADMISSION DATE: 04/04/19 DISCHARGE DATE: 04/08/19 HISTORY: Mr. Roman is a 73-year-old white male with end-stage renal disease, chronic dialysis. I saw him in the dialysis unit 2 weeks ago, he was stable, presented with acute onset of left lower abdominal pain, felt to be diverticular in origin and admitted for the above. HOSPITAL COURSE: The patient received IV followed by oral antibiotic therapy and he promptly improved. He declined any further intervention, declined rehab placement and was requesting discharge when tolerating p.o. antibiotics. His CT of the abdomen failed to reveal any evidence of abscess or perforation. His abdominal exam was back to baseline at the time of discharge as well as solid stools. DISCHARGE DIAGNOSES: 1. Acute diverticulitis, improved. 2. End-stage renal disease, chronic dialysis. 3. Chronic anemia. 4. History of hyperlipidemia. PLAN: The patient will be discharged today. We will see him in dialysis in the next 1-2 weeks. He will continue his renal diet, ambulation as tolerated. DISCHARGE MEDICATIONS: Will be Levaquin 250 daily for 5 more days, Flagyl 250 t.i.d. for 5 more days, pravastatin 40 mg daily, PhosLo 1 t.i.d., multivitamin daily, losartan 100 daily, Synthroid 100 mcg daily, Coreg 25 b.i.d. TRANSINT:[id number] Voice Confirmation ID: [id number] DOCUMENT ID: [id number] DANIEL BAINS MD at 0716 CC: [id number] DICTATION DATE: 04/08/19 08 OFFICE MACHINES WIRER: 04/08/19 0908 DIS IN 04/08/19 [id number] [place] [address]
== END 2019-04-08 16:50 | disposition home or self-care (01) | DRG 377 ==
LOC: D.ER 07:06 → D.M2 09:44
PROVIDERS: Emergency Medicine; Internal Medicine Nephrology; ADMIT Internal Medicine Nephrology; ATTEND Internal Medicine Nephrology
PROC: 5A1D70Z Performance of Urinary Filtration, Intermittent, Less than 6 Hours Per Day (ICD-10-PCS; principal; 2019-04-06)
DX: K57.93 Diverticulitis of intestine, part unspecified, without perforation or abscess with bleeding (principal); N18.6 End stage renal disease; I13.2 Hypertensive heart and chronic kidney disease with heart failure and with stage 5 chronic kidney disease, or end stage renal disease; I50.9 Heart failure, unspecified; Z99.2 Dependence on renal dialysis; D69.6 Thrombocytopenia, unspecified; E78.5 Hyperlipidemia, unspecified; D63.1 Anemia in chronic kidney disease; Z86.73 Personal history of transient ischemic attack (TIA), and cerebral infarction without residual deficits; Z72.0 Tobacco use